=== PATIENT | female | born 1995 | race Caucasian/White ===

== ENCOUNTER → 2019-06-25 13:08 | Outpatient (BNVA) | payer MEDICAID, SELFPAY | PROVIDERS: Family Provider Dermatology; PCP Family Medicine; Visit Provider Counselor Professional | DX: F33.1 Major depressive disorder, recurrent, moderate (principal) | CPT/HCPCS: 90834; 90832 ==

== ENCOUNTER → 2019-07-09 14:23 | Outpatient (BNVA) | payer MEDICAID, SELFPAY | PROVIDERS: Family Provider Dermatology; PCP Family Medicine; Visit Provider Counselor Professional | DX: F33.1 Major depressive disorder, recurrent, moderate (principal) | CPT/HCPCS: 90832 ==

== ENCOUNTER → 2019-07-10 07:51 | Outpatient (BNVA) | payer MEDICAID, SELFPAY | PROVIDERS: Family Provider Dermatology; PCP Family Medicine; Visit Provider Psychiatry & Neurology Psychiatry | DX: F32.89 Other specified depressive episodes (principal); F43.12 Post-traumatic stress disorder, chronic; F40.01 Agoraphobia with panic disorder | CPT/HCPCS: 99205 ==

== ENCOUNTER → 2019-07-23 14:25 | Outpatient (BNVA) | payer MEDICAID, SELFPAY | PROVIDERS: Family Provider Dermatology; PCP Family Medicine; Visit Provider Counselor Professional | DX: F33.1 Major depressive disorder, recurrent, moderate (principal) | CPT/HCPCS: 90832 ==

== ENCOUNTER → 2019-11-17 14:06 | Outpatient (BNVA) | payer MEDICAID, SELFPAY | PROVIDERS: PCP Family Medicine; Visit Provider Counselor Professional | DX: F33.1 Major depressive disorder, recurrent, moderate (principal) | CPT/HCPCS: 90832 ==

== ENCOUNTER → 2019-12-15 14:14 | Outpatient (BNVA) | payer MEDICAID, SELFPAY | PROVIDERS: PCP Family Medicine; Visit Provider Counselor Professional | DX: F33.1 Major depressive disorder, recurrent, moderate (principal) | CPT/HCPCS: 90832 ==

== ENCOUNTER → 2020-01-13 13:04 | Outpatient (BNVA) | payer MEDICAID, SELFPAY | PROVIDERS: PCP Family Medicine; Visit Provider Counselor Professional | DX: F33.9 Major depressive disorder, recurrent, unspecified (principal) | CPT/HCPCS: 90832 ==

== ENCOUNTER → 2020-02-17 13:06 | Outpatient (BNVA) | payer MEDICAID, SELFPAY | PROVIDERS: PCP Family Medicine; Visit Provider Counselor Professional | DX: F33.9 Major depressive disorder, recurrent, unspecified (principal) | CPT/HCPCS: 90832 ==

== ENCOUNTER 2020-03-13 18:57 | Emergency (ER) | payer MEDICAID, SELFPAY ==
[2020-03-13 19:33] VITALS: BP 171/96; PULSE 86; RESP 18; TEMP 36.6; O2SAT 98; BMI 50.6
--- NOTE | 2020-03-13 19:39 | XRR_ITS ---
PROCEDURE INFORMATION: Exam: XR Abdomen, 1 View Exam date and time: 03/13/2020 11:46 PM Age: 24 years old Clinical indication: Constipation TECHNIQUE: Imaging protocol: XR of the abdomen. Views: Frontal supine view of the abdomen. 1 View. COMPARISON: CT abdomen pelvis w con* [id number] 09/30/2017 4:55 PM FINDINGS: Gastrointestinal tract: Normal. No bowel dilation. Bones/joints: Unremarkable. XR/XR KUB portable [id number] IMPRESSION: No acute findings.
--- NOTE | 2020-03-13 23:40 | XRR_ITS ---
PROCEDURE INFORMATION: Exam: XR Chest, 1 View Exam date and time: 03/13/2020 11:46 PM Age: 24 years old Clinical indication: Cough TECHNIQUE: Imaging protocol: XR of the chest Views: 1 view. COMPARISON: CR Chest 1 [place] [id number] 03/01/2017 10:11 PM FINDINGS: Lungs: Unremarkable. No consolidation. Pleural space: Unremarkable. No pleural effusion. No pneumothorax. Heart/Mediastinum: Unremarkable. No cardiomegaly. Bones/joints: Unremarkable. XR/XR chest 1V portable [id number] IMPRESSION: No acute findings. Stable appearance of the chest compared with 03/01/2017.
--- NOTE | 2020-03-13 23:41 | W.ED.ABDPA2 ---
HPI - Abdominal Pain General: Chief Complaint: Abdominal Pain Stated Complaint: SOB, tested positive last sunday, Time Seen by Provider: 03/13/20 23:37 History of Present Illness: HPI narrative: Covid positive patient on the . States that she has had abdominal pain today. Said she had had a bowel movement for 2 days and she said she had a bowel movement this morning. Says she also has a cough has not been using her inhaler. Said her stomach is cramping at times. Feels like she needs to have bowel movement. MD elicited complaint: abdominal pain Pertinent past history: constipation Onset (ago): hour(s) Pain Consistency: intermittent Associated Symptoms: Reports no associated symptoms; Denies chills, fever(s), nausea and vomiting Review of Systems Const: Denies: fever(s), chills or body aches Eyes: Denies: change in vision or blurry vision ENMT: Denies: throat pain or nasal congestion Card: Denies: chest pain or dyspnea on exertion Resp: Reports: non-productive cough; Denies: dyspnea or productive cough GI: Reports: other (Cramping); Denies: abdominal pain, nausea or vomiting Musc: Denies: extremity pain Skin/Breast: Denies: rash Neuro: Denies: headache(s) Psych: Denies: anxiety or depression Herbie/Lymph: Denies: easy bruising PFSH ED PFSH: Medical History (Updated 12/25/19 @ 13:36 by Lobo Portillo MD) Agoraphobia with panic attacks Anxiety Asthma Chronic post-traumatic stress disorder (PTSD) GERD (gastroesophageal reflux disease) History of prediabetes IBS (irritable bowel syndrome) Major depression, recurrent, chronic Morbid obesity with BMI of 50.0-59.9, adult Obstructive sleep apnea of adult Scoliosis Surgical History (Updated 12/25/19 @ 13:27 by Lobo Portillo MD) Hx of wisdom tooth extraction Social History (Updated 12/25/19 @ 08:58 by Urszula Garrido LPN) Smoking and tobacco status: never smoked Alcohol intake: never Marital status: Number of children: 0 Number of grandchildren: 0 Current occupational status: unemployed Sexually active: Yes Current gender identity: Female Physical Exam Const: COMMON NORMALS: no acute distress, average body habitus and patient oriented x3 HENMT: COMMON NORMALS: normocephalic HEAD & SCALP: normal to inspection and normocephalic FACE & SINUS: normal facial exam Eye: COMMON NORMALS: conjunctivae normal GENERAL EYE: appearance normal, both eyes and all related structures CONJUNCTIVA: Yes conjunctivae normal Neck/C-Spine: COMMON NORMALS: no JVD Chest: COMMONS NORMALS: normal inspection of the chest Resp: COMMON NORMALS: normal respiratory effort and clear to auscultation bilaterally AUSCULTATION: clear to auscultation bilaterally Cardio: COMMON NORMALS: no JVD, regular rate and regular rhythm RATE: regular rate RHYTHM: regular rhythm GI: COMMON NORMALS: Normal to inspection, nondistended, normoactive bowel sounds present Extremity: COMMON NORMALS: normal to inspection and full ROM Neuro: COMMON NORMALS: patient oriented x3 Course Vital Signs: Vital signs: Vital Signs Temperature 97.8 F 03/13/20 19:33 Pulse Rate 86 03/13/20 19:33 Respiratory Rate 18 03/13/20 19:33 Blood Pressure 171/96 03/13/20 19:33 Pulse Oximetry 98 03/13/20 19:33 Discharge Plan Discharge Prescriptions: No Action buspirone 10 mg tablet 10 mg PO BID RF: 0 omeprazole magnesium [Acid Talent Development Specialist (omeprazole)] 20 mg capsule,delayed release(DR/EC) 20 mg PO DAILY Qty: 30 RF: 5 dicyclomine 20 mg tablet 20 mg PO BID Qty: 60 RF: 3 sertraline [Zoloft] 100 mg tablet 100 mg PO DAILY Qty: 30 RF: 2 Natavi PNV 13.5 mg iron- 0.5 mg-150 mg capsule 1 cap PO QDAY Qty: 30 RF: 0 haloperidol decanoate [Haldol Decanoate] 50 mg/mL solution 50 mg IM .every 2 weeks Qty: 5 RF: 2 Coding Level of Care Code ED Brand Executive for Drew Puri
[2020-03-13] MEDS: ondansetron 4 MG Tablet PO (23:55)
[2020-03-13] MEDS: HYDROcodone-acetaminophen 10-325 mg Tablet 1 TAB PO (23:55)
[2020-03-13 23:58] VITALS: BP 125/47; PULSE 79; RESP 16; O2SAT 99
[2020-03-14 00:10] LABS: Basophils # 0.1 10^3/uL (0.0-0.1); Basophils % 0.8 %; Eosinophils # 0.1 10^3/uL (0.0-0.8); Hematocrit 39.9 % (37.0-47.0); Hemoglobin 11.2 g/dL (11.5-15.3); Lymphocytes # 2.2 10^3/uL (0.8-4.8); Lymphocytes % 35.2 %; Mean Corpuscular HGB Conc 28.1 g/dL (30.0-36.0); Mean Corpuscular Hemoglobin 20.9 pg (28.0-34.0); Mean Corpuscular Volume 74.6 fL (81-99); Mean Platelet Volume 9.8 fL (7.4-10.4); Monocytes # 0.5 10^3/uL (0.2-0.9); Monocytes % 7.4 %; Neutrophils # 3.44 10^3/uL (1.8-7.7); Nucleated Red Blood Cells % 0 %; Platelet Count 363 10^3/cmm (130-400); Red Blood Count 5.35 10^6/uL (4.1-5.3); Red Cell Distribution Width 17.5 % (12.1-15.1); White Blood Count 6.3 10^3/uL (4.0-10.0)
[2020-03-14 00:22] LABS: HCG Qualitative Urine. Negative (Negative)
[2020-03-14 00:27] LABS: Alanine Aminotransferase 44 U/L (0-33); Albumin Level 3.8 g/dL (3.5-5.2); Alkaline Phosphatase 82 IU/L (35-105); Anion Gap 11.9 (5-19); Aspartate Amino Transferase 28 U/L (0-32); Blood Urea Nitrogen 18 mg/dL (6-20); Calcium 9.1 mg/dL (8.5-10.5); Carbon Dioxide 28 mmol/L (22-29); Chloride 102 mmol/L (98-107); Globulin 3.8 g/dL (1.3-4.6); Glomerular Filtration Rate 88.1 mL/min (90-130); Glucose 115 mg/dL (65-115); Lipase 21 U/L (13-60); Osmolality Calculated 289 mOsm/kg (285-295); Potassium 3.9 mmol/L (3.5-5.1); Sodium 138 mmol/L (136-145); Total Bilirubin 0.2 mg/dL (0.15-1.2); Total Protein 7.6 g/dL (6.6-8.7)
[2020-03-14] MEDS: bisacodyl 5 mg Tablet 10 MG PO (01:25)
[2020-03-14 01:28] VITALS: BP 104/80; PULSE 92; RESP 17; TEMP 36.6; O2SAT 100
== END 2020-03-14 01:28 | disposition home or self-care (01) ==
PROVIDERS: Emergency Provider Nurse Practitioner Family; PCP Family Medicine
DX: R10.9 Unspecified abdominal pain (principal); R06.02 Shortness of breath
CPT/HCPCS: 12345; 36415; 71045; 74018; 80053; 81025; 83690; 85025; 99281; 99283; Q0162

== ENCOUNTER → 2020-03-23 13:19 | Outpatient (BNVA) | payer MEDICAID, SELFPAY | PROVIDERS: PCP Family Medicine; Visit Provider Counselor Professional | DX: F33.2 Major depressive disorder, recurrent severe without psychotic features (principal) | CPT/HCPCS: 90832 ==

== ENCOUNTER → 2020-03-24 15:48 | Outpatient (BNVA) | payer MEDICAID, SELFPAY | PROVIDERS: PCP Family Medicine; Visit Provider Obstetrics & Gynecology | DX: Z34.00 Encounter for supervision of normal first pregnancy, unspecified trimester (principal) | CPT/HCPCS: 81025 ==

== ENCOUNTER → 2020-03-26 10:05 | Outpatient (BNVA) | payer MEDICAID, SELFPAY | PROVIDERS: PCP Family Medicine; Visit Provider Obstetrics & Gynecology | DX: N92.6 Irregular menstruation, unspecified (principal); N91.2 Amenorrhea, unspecified | CPT/HCPCS: 84146; 84443 ==

== ENCOUNTER → 2020-04-09 10:15 | Outpatient (BNVA) | payer MEDICAID, SELFPAY | PROVIDERS: PCP Family Medicine; Visit Provider Obstetrics & Gynecology | DX: N91.2 Amenorrhea, unspecified (principal); N93.8 Other specified abnormal uterine and vaginal bleeding | CPT/HCPCS: 82670; 83001; 84402 ==

== ENCOUNTER → 2020-04-26 10:27 | Outpatient (BNVA) | payer MEDICAID, SELFPAY | PROVIDERS: PCP Family Medicine; Visit Provider Nurse Practitioner Psychiatric/Mental Health | DX: F33.1 Major depressive disorder, recurrent, moderate (principal) | CPT/HCPCS: 99214 ==

== ENCOUNTER → 2020-05-31 07:53 | Outpatient (BNVA) | payer MEDICAID, SELFPAY | PROVIDERS: PCP Family Medicine; Visit Provider Nurse Practitioner Psychiatric/Mental Health | DX: F33.1 Major depressive disorder, recurrent, moderate (principal); F43.12 Post-traumatic stress disorder, chronic | CPT/HCPCS: 99213 ==

== ENCOUNTER 2020-06-06 01:47 | Emergency (ER) | payer MEDICAID, SELFPAY ==
[2020-06-06 01:47] VITALS: BP 105/70; PULSE 82; RESP 18; TEMP 36.5; O2SAT 100; BMI 50.2
--- NOTE | 2020-06-06 01:58 | ECG_ITS ---
[facility] Test Date: 2020-06-06 Pat Name: Nelia Harp Department: Room: Gender: Female Admissions Gate Attendant: : 1995 Requested By: Yared Alba Order Number: [id number] Bonnie MD: Aydee Howell M.D. Measurements Intervals [place] Rate: 92 P: 26 DC: 151 QRS: 31 QRSD: 91 T: 25 QT: 364 QTc: 452 Interpretive Statements SINUS RHYTHM WITH SINUS ARRHYTHMIA INTERPRETATION BASED ON A DEFAULT AGE OF 40 YEARS No previous ECG available for comparison Electronically Signed On 06-06-2020 20:19:25 CDT by Aydee Howell M.D. [email or web address] [facility] [email or web address]/[email or web address]/[id number] f
--- NOTE | 2020-06-06 01:58 | XRR_ITS ---
PROCEDURE INFORMATION: Exam: XR Chest Exam date and time: 06/06/2020 2:00 AM Age: 24 years old Clinical indication: Chest pain TECHNIQUE: Imaging protocol: XR of the chest Views: 1 view. COMPARISON: CR XR chest 1V portable [id number] 03/13/2020 11:37 PM FINDINGS: Lungs: No consolidation. Pleural spaces: Unremarkable. No pleural effusion. No pneumothorax. Heart/Mediastinum: No cardiomegaly. Bones/joints: No acute fracture. XR/XR chest 1V portable [id number] IMPRESSION: No acute findings.
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
[2020-06-06 02:17] LABS: Basophils # 0.1 10^3/uL (0.0-0.1); Basophils % 0.8 %; Eosinophils # 0.2 10^3/uL (0.0-0.8); Hematocrit 35.3 % (37.0-47.0); Hemoglobin 9.7 g/dL (11.5-15.3); Lymphocytes # 2.7 10^3/uL (0.8-4.8); Lymphocytes % 30.5 %; Mean Corpuscular HGB Conc 27.5 g/dL (30.0-36.0); Mean Corpuscular Hemoglobin 20.5 pg (28.0-34.0); Mean Corpuscular Volume 74.6 fL (81-99); Mean Platelet Volume 9.5 fL (7.4-10.4); Monocytes # 0.6 10^3/uL (0.2-0.9); Monocytes % 6.1 %; Neutrophils # 5.39 10^3/uL (1.8-7.7); Neutrophils % 60.2 %; Nucleated Red Blood Cells % 0 %; Platelet Count 371 10^3/cmm (130-400); Red Blood Count 4.73 10^6/uL (4.1-5.3); Red Cell Distribution Width 19.4 % (12.1-15.1)
[2020-06-06 02:34] LABS: HCG, Serum Qual Negative (Negative)
[2020-06-06] MEDS: LORazepam 0.5 mg Tablet PO (02:35)
[2020-06-06 02:45] LABS: Troponin(5th) Baseline 6 ng/L (0-10)
[2020-06-06 03:12] LABS: Alanine Aminotransferase 24 U/L (0-33); Albumin Level 3.8 g/dL (3.5-5.2); Alkaline Phosphatase 77 IU/L (35-105); Anion Gap 14.6 (5-19); Aspartate Amino Transferase 14 U/L (0-32); Blood Urea Nitrogen 10 mg/dL (6-20); Calcium 9.3 mg/dL (8.5-10.5); Carbon Dioxide 24 mmol/L (22-29); Chloride 104 mmol/L (98-107); Globulin 4.1 g/dL (1.3-4.6); Glomerular Filtration Rate 102.8 mL/min (90-130); Glucose 99 mg/dL (65-115); NT Pro B Type Natriuretic Pept 62 pg/mL (0-125); Osmolality Calculated 287 mOsm/kg (285-295); Potassium 3.6 mmol/L (3.5-5.1); Sodium 139 mmol/L (136-145); Total Bilirubin 0.2 mg/dL (0.15-1.2); Total Protein 7.9 g/dL (6.6-8.7)
[2020-06-06 03:37] VITALS: BP 115/73; PULSE 80; RESP 18; O2SAT 99
== END 2020-06-06 03:37 | disposition home or self-care (01) ==
PROVIDERS: Nurse Practitioner Family; Emergency Provider Emergency Medicine
DX: R07.9 Chest pain, unspecified (principal); E11.9 Type 2 diabetes mellitus without complications; Z87.891 Personal history of nicotine dependence
CPT/HCPCS: 71045; 80053; 83880; 84484; 84703; 85025; 93005; 99284

== ENCOUNTER → 2020-07-12 08:22 | Outpatient (BNVA) | payer MEDICAID, SELFPAY | PROVIDERS: Visit Provider Nurse Practitioner Psychiatric/Mental Health | DX: F33.1 Major depressive disorder, recurrent, moderate (principal); F43.12 Post-traumatic stress disorder, chronic; F41.9 Anxiety disorder, unspecified | CPT/HCPCS: 99214 ==

== ENCOUNTER → 2020-08-23 08:35 | Outpatient (BNVA) | payer MEDICAID, SELFPAY | PROVIDERS: Visit Provider Nurse Practitioner Psychiatric/Mental Health | DX: F33.1 Major depressive disorder, recurrent, moderate (principal); F43.12 Post-traumatic stress disorder, chronic; F41.9 Anxiety disorder, unspecified; Z30.9 Encounter for contraceptive management, unspecified | CPT/HCPCS: 99213 ==

== ENCOUNTER → 2020-10-26 07:56 | Outpatient (BNVA) | payer MEDICAID, SELFPAY | PROVIDERS: Visit Provider Nurse Practitioner Psychiatric/Mental Health | DX: F33.1 Major depressive disorder, recurrent, moderate (principal); F43.12 Post-traumatic stress disorder, chronic; F41.9 Anxiety disorder, unspecified; Z30.9 Encounter for contraceptive management, unspecified | CPT/HCPCS: 99214 ==

== ENCOUNTER → 2020-11-01 13:30 | Outpatient (BNVA) | payer MEDICAID, SELFPAY | PROVIDERS: Visit Provider Obstetrics & Gynecology | DX: Z01.419 Encounter for gynecological examination (general) (routine) without abnormal findings (principal); R10.2 Pelvic and perineal pain; N89.8 Other specified noninflammatory disorders of vagina | CPT/HCPCS: 81000; 81025; 83036; 83525; 84443; 84702; 87481; 87512; 87798; 87799 ==

== ENCOUNTER → 2020-11-24 07:40 | Outpatient (BNVA) | payer MEDICAID, SELFPAY | PROVIDERS: Visit Provider Nurse Practitioner | DX: F43.12 Post-traumatic stress disorder, chronic (principal); F33.9 Major depressive disorder, recurrent, unspecified; F41.9 Anxiety disorder, unspecified | CPT/HCPCS: 99214 ==

== ENCOUNTER → 2022-04-28 10:14 | Outpatient (BNVA) | payer MEDICAID, SELFPAY | PROVIDERS: Visit Provider Obstetrics & Gynecology | DX: N92.6 Irregular menstruation, unspecified (principal) | CPT/HCPCS: 84702 ==

== ENCOUNTER 2022-11-10 16:27 | Inpatient (IN) | payer MEDICAID, SELFPAY ==
[2022-11-10 16:32] VITALS: BP 138/79; PULSE 94; RESP 18; TEMP 36.9; O2SAT 98; BMI 55.9
[2022-11-10 16:35] VITALS: BP 138/79; PULSE 94; RESP 18; O2SAT 98
--- NOTE | 2022-11-10 17:07 | ED.C_ITS ---
HPI - Psych General: Chief Complaint: Psychiatric Symptoms Stated Complaint: psych Time Seen by Provider: 11/10/22 16:29 History of Present Illness: Presents to the ER today with complaints of self-harm and suicidal ideation. Patient states that these just started today. Patient has not been on her medicine for a long time because they got stolen while she was in [place]. Patient states she has not acted on her suicidal ideation but she would use something sharp and stab herself if she could could. Patient does have a history of cutting herself. Patient states her life is overwhelming and she feels her life is in a downward spiral and she is wants to end it all. Review of Systems General: Reports: 10 or more systems reviewed and unremarkable except in HPI and below PFSH ED PFSH: Medical History Agoraphobia with panic attacks Anxiety Asthma Chronic post-traumatic stress disorder (PTSD) GERD (gastroesophageal reflux disease) History of diabetes mellitus States told had gone away. States had been treated with Metformin, but stopped in approximately 2018 History of prediabetes Hyperprolactinemia IBS (irritable bowel syndrome) Major depression, recurrent, chronic Morbid obesity with BMI of 50.0-59.9, adult Obstructive sleep apnea of adult Polycystic ovarian syndrome Scoliosis Surgical History History of placement of ear tubes Hx of wisdom tooth extraction Family History Mother Diabetes Grandmother CAD (coronary artery disease) Paternal Stroke Paternal Family/Other Cancer Paternal side. Multiple types. Social History Smoking and tobacco status: former smoker Quit status (tobacco): has quit using tobacco Year quit tobacco: 10/2018 Former quit date comment: Smoked 1/2 ppd. Started age 20. Alcohol intake: never Substance/Drug Use: never Marital status: Do you think of yourself as: Straight/Heterosexual Female Reproductive History: Date of last menstrual period: 10/31/22 Physical Exam Const: COMMON NORMALS: no acute distress, average body habitus, patient oriented x3, no limitations, healthy appearing, alert and well nourished HENMT: COMMON NORMALS: normocephalic, atraumatic, hearing grossly normal bilaterally, external ears normal, Normal external nose present and moist oral mucous membranes HEAD & SCALP: normocephalic and atraumatic NOSE: Normal external nose present EXTERNAL EAR: Yes external ears normal Neck/C-Spine: COMMON NORMALS: full ROM, no lymphadenopathy, supple, no meningeal signs, no JVD and Thyroid normal THYROID: Thyroid normal Lymph: LYMPHATIC: no lymphadenopathy noted Chest: COMMONS NORMALS: normal inspection of the chest and normal palpation of entire chest wall Resp: COMMON NORMALS: normal respiratory effort, No retractions, No use of accessory muscles and clear to auscultation bilaterally AUSCULTATION: clear to auscultation bilaterally Cardio: COMMON NORMALS: no JVD, regular rate, regular rhythm, S1 normal heart sound present, S2 normal heart sound present, No gallops present (Cardio), No clicks present (Cardio), No murmurs present (Cardio) and No rub (Cardio) RATE: regular rate RHYTHM: regular rhythm HEART SOUNDS: S1 normal heart sound present and S2 normal heart sound present GI: COMMON NORMALS: Normal to inspection, nondistended, normoactive bowel sounds present, Soft to palpation, non-tender, No hepatosplenomegaly present and no masses PALPATION: Yes Soft to palpation and Yes No hepatosplenomegaly present Neuro: COMMON NORMALS: patient oriented x3 SENSORIUM/ORIENTATION: Yes alert MENINGEAL SIGNS: Yes no meningeal signs Course Vital Signs: Vital signs: Vital Signs Temperature 98.4 F 11/10/22 16:32 Pulse Rate 94 11/10/22 16:35 Respiratory Rate 18 11/10/22 16:35 Blood Pressure 138/79 11/10/22 16:35 Pulse Oximetry 98 11/10/22 16:35 Oxygen Delivery Me thod Room Air 11/10/22 16:35 MDM - Psych Medical Decision Making Presented to the ER with suicidal ideation. Patient was worked up in the normal fashion with physical exam and standard blood work. Dr. Huffman was consulted who agreed to admit the patient to the MPU for further evaluation testing. Differential Diagnosis Likely suicidal ideation; Unlikely acute psychosis, chronic schizophrenia, bipolar disorder, depression, drug-induced psychotic disorder or acute anxiety Medical Records I reviewed the patient's medical records. Lab Data I reviewed the patient's lab results. 11/10/22 17:04 11/10/22 17:04 Laboratory Results WBC 6.72 10^3/uL (3.29-11.43) 11/10/22 17:04 RBC 5.24 10^6/uL (3.85-5.65) 11/10/22 17:04 Hgb 13.10 g/dL (11.27-16.99) 11/10/22 17:04 Hct 45.3 % (36-47) 11/10/22 17:04 MCV 86.5 fl (85-98) 11/10/22 17:04 MCH 25.0 pg (27-33) L 11/10/22 17:04 MCHC 28.9 g/dL (30-55) L 11/10/22 17:04 RDW 15.4 % (12.1-15.1) H 11/10/22 17:04 Plt Count 251 10^3/cmm (157-399) 11/10/22 17:04 MPV 10.4 fL (7.4-10.4) 11/10/22 17:04 Neut % (Auto) 68.2 % 11/10/22 17:04 Lymph % (Auto) 24.3 % 11/10/22 17:04 [place] % (Auto) 6.1 % 11/10/22 17:04 Eos % (Auto) 0.7 % 11/10/22 17:04 Baso % (Auto) 0.6 % 11/10/22 17:04 Neut # (Auto) 4.58 10^3/uL (1.8-7.7) 11/10/22 17:04 Lymph # (Auto) 1.6 10^3/uL (0.8-4.8) 11/10/22 17:04 [place] # (Auto) 0.4 10^3/uL (0.2-0.9) 11/10/22 17:04 Eos # (Auto) 0.1 10^3/uL (0.0-0.8) 11/10/22 17:04 Baso # (Auto) 0.0 10^3/uL (0.0-0.1) 11/10/22 17:04 Nucleated RBC % (auto) 0 % 11/10/22 17:04 Nucleated RBCs # 0.0 /100WBC 11/10/22 17:04 Sodium 138 mmol/L (136-145) 11/10/22 17:04 Potassium 3.4 mmol/L (3.5-5.1) L 11/10/22 17:04 Chloride 105 mmol/L (98-107) 11/10/22 17:04 Carbon Dioxide 20 mmol/L (22-29) L 11/10/22 17:04 Anion Gap 16.4 (5-19) 11/10/22 17:04 BUN 9 mg/dL (6-20) 11/10/22 17:04 Creatinine 0.7 mg/dL (0.5-0.9) 11/10/22 17:04 GFR Calculation 100.4 mL/min (90-130) 11/10/22 17:04 Glucose 81 mg/dL (65-115) 11/10/22 17:04 Calculated Osmolality 284 mOsm/kg (285-295) L 11/10/22 17:04 Calcium 9.3 mg/dL (8.5-10.5) 11/10/22 17:04 Total Bilirubin 0.4 mg/dL (0.15-1.2) 11/10/22 17:04 AST 17 U/L (0-32) 11/10/22 17:04 ALT 17 U/L (0-33) 11/10/22 17:04 Alkaline Phosphatase 73 U/L (35-105) 11/10/22 17:04 Total Protein 8.1 g/dL (6.6-8.7) 11/10/22 17:04 Albumin 4.1 g/dL (3.5-5.2) 11/10/22 17:04 Globulin 4.0 g/dL (1.3-4.6) 11/10/22 17:04 HCG, Qual Negative (Negative) 11/10/22 17:45 Urine Color Yellow (Yellow) 11/10/22 17:45 Urine Appearance Hazy (CLEAR) A 11/10/22 17:45 Urine pH 5 (5-7) 11/10/22 17:45 Ur Specific [place] 1.025 (1.005-1.030) 11/10/22 17:45 Urine Protein Trace (Negative) 11/10/22 17:45 Urine Glucose (UA) Norm (Normal) 11/10/22 17:45 Urine Ketones 1+ (Negative) H 11/10/22 17:45 Urine Blood Neg (Negative) 11/10/22 17:45 Urine Nitrate Negative (Negative) 11/10/22 17:45 Urine Bilirubin 1+ (Negative) H 11/10/22 17:45 Urine Urobilinogen 1 mg/dL (Negative) H 11/10/22 17:45 Ur Leukocyte Esterase 2+ (Negative) H 11/10/22 17:45 Urine RBC 0-4 /hpf (0-2) H 11/10/22 17:45 Urine WBC 10-15 /hpf (0-5) H 11/10/22 17:45 Ur Squamous Epith Cells 5-10 /hpf (0-5) H 11/10/22 17:45 Amorphous Sediment 2+ /hpf 11/10/22 17:45 Urine Bacteria 3+ /hpf (NONE) H 11/10/22 17:45 Urine Mucus 3+ /hpf 11/10/22 17:45 Salicylates < 0.3 mg/dL (3-10) L 11/10/22 17:04 Urine Opiates Screen Negative ng/mL (Negative) 11/10/22 17:45 Acetaminophen < 5.0 ug/mL (10-30) L 11/10/22 17:04 Ur Barbiturates Screen Negative ng/mL (Negative) 11/10/22 17:45 Ur Phencyclidine Scrn Negative ng/mL (Negative) 11/10/22 17:45 Ur Amphetamines Screen Negative ng/mL (Negative) 11/10/22 17:45 U Benzodiazepines Scrn Negative ng/mL (Negative) 11/10/22 17:45 Urine Cocaine Screen Negative ng/mL (Negative) 11/10/22 17:45 U Marijuana (THC) Screen Negative ng/mL (Negative) 11/10/22 17:45 Ethyl Alcohol < 10 mg/dL (0-10) 11/10/22 17:04 Discharge Plan Discharge Patient Disposition: Admitted As Inpatient Clinical Impression: Suicidal ideation Condition: Stable Coding Level of Care Code ED House Carpenter Helper for Drew Puri
[2022-11-10 17:11] LABS: Basophils % 0.6 %; Eosinophils # 0.1 10^3/uL (0.0-0.8); Eosinophils % 0.7 %; Hematocrit 45.3 % (36-47); Lymphocytes # 1.6 10^3/uL (0.8-4.8); Lymphocytes % 24.3 %; Mean Corpuscular HGB Conc 28.9 g/dL (30-55); Mean Corpuscular Volume 86.5 fl (85-98); Mean Platelet Volume 10.4 fL (7.4-10.4); Monocytes # 0.4 10^3/uL (0.2-0.9); Monocytes % 6.1 %; Neutrophils # 4.58 10^3/uL (1.8-7.7); Neutrophils % 68.2 %; Nucleated Red Blood Cells % 0 %; Platelet Count 251 10^3/cmm (157-399); Red Blood Count 5.24 10^6/uL (3.85-5.65); Red Cell Distribution Width 15.4 % (12.1-15.1); White Blood Count 6.72 10^3/uL (3.29-11.43)
[2022-11-10 17:32] LABS: Acetaminophen < 5.0 ug/mL (10-30); Alanine Aminotransferase 17 U/L (0-33); Albumin Level 4.1 g/dL (3.5-5.2); Alcohol Level < 10 mg/dL (0-10); Alkaline Phosphatase 73 U/L (35-105); Anion Gap 16.4 (5-19); Aspartate Amino Transferase 17 U/L (0-32); Blood Urea Nitrogen 9 mg/dL (6-20); Calcium 9.3 mg/dL (8.5-10.5); Carbon Dioxide 20 mmol/L (22-29); Chloride 105 mmol/L (98-107); Glomerular Filtration Rate 100.4 mL/min (90-130); Glucose 81 mg/dL (65-115); Osmolality Calculated 284 mOsm/kg (285-295); Potassium 3.4 mmol/L (3.5-5.1); Salicylate < 0.3 mg/dL (3-10); Sodium 138 mmol/L (136-145); Total Bilirubin 0.4 mg/dL (0.15-1.2); Total Protein 8.1 g/dL (6.6-8.7)
[2022-11-10 18:05] LABS: Blood Urine Neg (Negative); Glucose Urine UA Norm (Normal); HCG Qualitative Urine. Negative (Negative); Ketones Urine 1+ (Negative); Protein Urine Trace (Negative); Specific Gravity, Urine 1.025 (1.005-1.030); Urine Appearance Hazy (CLEAR); Urine Color Yellow (Yellow); pH Urine 5 (5-7)
[2022-11-10 18:06] LABS: Add Urine Microscopic? YES; Amphetamines Screen Urine Negative (Negative); Barbiturates Screen Urine Negative (Negative); Benzodiazepines Screen Urine Negative (Negative); Bilirubin Urine 1+ (Negative); Cocaine Screen Urine Negative (Negative); Leukocyte Esterase Urine 2+ (Negative); Nitrate Urine Negative (Negative); Opiate Screen Urine Negative (Negative); PCP Screen Urine Negative (Negative); THC Screen Urine Negative (Negative); Urobilinogen Urine 1 mg/dL (Negative)
[2022-11-10 18:07] LABS: Add Urine Culture? Yes; Amorphous Sediment Urine 2+ /hpf; Bacteria Urine 3+ /hpf; Mucus Urine 3+ /hpf; RBC Urine 0-4 /hpf (0-2)
[2022-11-10 19:50] VITALS: BP 102/60; PULSE 85; RESP 16; O2SAT 100
[2022-11-10 20:53] VITALS: BP 124/82; PULSE 98; RESP 18; TEMP 36.9; O2SAT 98
--- NOTE | 2022-11-10 22:33 | PC.NURSE ---
Pt arrived to [facility] @ approximately 2040 w/RN and security at side. Pt is calm and cooperative upon assessment.
[2022-11-11 06:00] VITALS: BP 114/74; PULSE 93; RESP 20; O2SAT 99
[2022-11-11 13:30] VITALS: PULSE 65; RESP 16; O2SAT 99
[2022-11-11] MEDS: albuterol 2.5 mg/3 mL Neb INHALATION (13:32)
[2022-11-11 13:46] VITALS: BP 101/63; PULSE 88; RESP 17; TEMP 37; O2SAT 98
--- NOTE | 2022-11-11 15:22 | W.PM.NPUH&PS ---
Providers/Chief Complaint Admitting Physician: Hawk Huffman MD Chief Complaint: psych HPI NPU History of Present Illness Nelia Harp is a 27 year old female who presented to the emergency department with the following report: Chief Complaint: Psychiatric Symptoms Stated Complaint: psych Time Seen by Provider: 11/10/22 16:29 History of Present Illness: Presents to the ER today with complaints of self-harm and suicidal ideation. Patient states that these just started today. Patient has not been on her medicine for a long time because they got stolen while she was in [place]. Patient states she has not acted on her suicidal ideation but she would use something sharp and stab herself if she could could. Patient does have a history of cutting herself. Patient states her life is overwhelming and she feels her life is in a downward spiral and she is wants to end it all. She was admitted to the neuropsychiatric unit for definitive treatment of those issues. She presents today reporting that she has been hospitalized twice at this facility in the past. An excerpt of her April 2017 inpatient stay is included below for context. Patient reports a long history of mental health treatment and has been at [facility] for some time. Though she was last seen in 2020. She reports that she was recently kicked out of a homeless snf and that has caused most of her difficulty. She reported she has been medications only were stolen but she has been off of them for some time. She is a poor story of an did report that she had struggled with family dynamics which led to her being homeless. She reports a history of self-injurious behavior. She reports symptoms consistent with mixed disorder including feelings of helplessness, hopelessness and worthlessness. She reports that after things went bad she came back to [place]. Thanks continued to be bad. And she started having thoughts to end it all. We discussed her trying to determine what she was on last that was helpful. We discussed the possibility of considering Wellbutrin XL which she said she will think about. Discussed the risks, benefits and alternatives of hurting some antidepressant and she understood agreed to proceed as is documented on this note. Per her 04/21/2017 [facility] inpatient psychiatric evaluation: History of Present Illness Date of Service: Apr 21, 2017 Chief Complaint: My ex-BF dumped me over text. HPI: HPI: The patient is a 21-year-old female admitted on a 96 hour hold for suicidal s/p OD on a handful of ibuprofen. Acet/ salic were unremarkable upon admission and VSS. The patient reports that her BF dumped her over the phone, texted her a picture of himself having sex with someone else, and suggested she kill herself, so she subsequently took the OD. UDS/ BAL were negative upon admission. She reports that she then called a friend who called EMS. Pt is a limited historian due to hx some borderline intellectual disability and poor insight. She reports that prior to the break-up her mood had been fine' but does report some chronic anhedonia, fatigue, recent SI, and generalized anxiety which causes muscle tension and feeling overwhelmed with difficulty managing that. Psychiatric review of systems: As above. Reports sleeps ok, appetite ok, denies worthlessness/ hopelessness. Reports hx SI after step-father passed 2 years ago. Denies manic episode/ hallucinations/ paranoia/ HI/ hx trauma. Pt does have hx facial tics for many years but denies vocal tics. Past psychiatric history: Denies prior SA/ psych admission. Has been treated by PCP for depression in the past but achieved remission ( Flexeril ?/ possibly means Lexapro) and has also been taking an unknown anxiety med PRN possibly hydroxyzine which is somewhat helpful. Past medical history: GERD, glasses, no hx head injuries/ seizures/ surgeries Family history: Uncle/ GM- depression Social history: single, no children, unemployed fired recently for lack of transportation at [facility], graduated HS with some LD/ ADD/ math problems. Legal- denies. Alcohol denies. Denies drugs. Smokes 1-2 cigarettes daily. Meds NPU Home Medications Medication Instructions Recorded Confirmed Last Taken Type albuterol sulfate 90 mcg/actuation 2 puff inhalation Q6H PRN 04/26/20 11/10/22 Unknown History aerosol inhaler (ProAir HFA) Shortness Of Breath Or Wheezing buspirone 15 mg tablet 15 mg PO BID #60 tabs 10/26/20 11/10/22 Unknown Rx desvenlafaxine succinate 100 mg 100 mg PO DAILY 11/10/22 11/10/22 Unknown History tablet,extended release 24 hr (Pristiq) omeprazole 20 mg capsule,delayed 20 mg PO BID 11/10/22 11/10/22 Unknown History release topiramate 50 mg tablet (Topamax) 50 mg PO DAILY 11/10/22 11/10/22 Unknown History Allergies Allergy/AdvReac Type Severity Reaction Status Date / Time aspirin Allergy feels like Verified 11/10/22 16:31 stomach is going to explode grape flavor Allergy Rash Verified 11/10/22 16:31 Penicillins Allergy gets hives Verified 11/10/22 16:31 PFSH NPU PFSH: Medical History Agoraphobia with panic attacks Anxiety Asthma Chronic post-traumatic stress disorder (PTSD) GERD (gastroesophageal reflux disease) History of diabetes mellitus States told had gone away. States had been treated with Metformin, but stopped in approximately 2019 History of prediabetes Hyperprolactinemia IBS (irritable bowel syndrome) Major depression, recurrent, chronic Morbid obesity with BMI of 50.0-59.9, adult Obstructive sleep apnea of adult Polycystic ovarian syndrome Scoliosis Surgical History History of placement of ear tubes Hx of wisdom tooth extraction Family History Mother Diabetes Grandmother CAD (coronary artery disease) Paternal Stroke Paternal Family/Other Cancer Paternal side. Multiple types. Social History Smoking and tobacco status: former smoker Quit status (tobacco): has quit using tobacco Year quit tobacco: 10/2018 Former quit date comment: Smoked 1/2 ppd. Started age 20. Alcohol intake: never Substance/Drug Use: never Marital status: Do you think of yourself as: Straight/Heterosexual Mental Status Exam MSE Comments: This is a morbidly obese, white female, in hospital scrubs, with limited grooming and eye contact. No abnormal movements, except for psychomotor retardation. Cooperative with exam in mild distress. Speech was decreased rate and volume. Mood described as depressed; affect congruent. Thought process, organized. Thought content: patient endorsed some suicidal thoughts but denied homicidal ideation, there were no delusions reported or noted, patient denied any auditory or visual hallucinations. Attention and concentration appeared intact, and memory appeared mostly reliable, but none were formally tested. Alert and oriented times three. Insight and judgment are limited. Impulse control is impaired. Vitals/I&O/Wt Last Vital Signs Temp 98.6 F 11/11/22 13:46 Pulse 88 11/11/22 13:46 Resp 17 11/11/22 13:46 BP 101/63 11/11/22 13:46 Pulse Ox 98 11/11/22 13:46 O2 Del Method Room Air 11/11/22 13:30 Weight last 48 hrs Weight 161.932 kg Data NPU 11/10/22 17:04 11/10/22 17:04 A&P Assessment and plan (1) Suicidal ideation: (2) Hyperinsulinism: (3) Anxiety: (4) Major depressive disorder, recurrent, moderate: (5) Chronic post-traumatic stress disorder (PTSD): (6) Morbid obesity with BMI of 50.0-59.9, adult: (7) Obstructive sleep apnea of adult: Plan This is a 27-year-old, white female, with a long history of mental health challenges and different medications, who presents reporting significant psycho-social challenges, including homelessness and having her medications stolen, open to the possibility of restarting her medications and getting back into treatment. 1. Continue current medication. 2. Encourage individual, group, and milieu therapy. 3. Continue q-15-minute checks for safety. Involuntary Hold Information 96 Hour Hold: 96 Hour Involuntary Admission: No Attestations NPU Medical Necessity Statement*: Inpatient hospitalization is medically necessary and the clinically appropriate intervention, at this time. We will monitor medications and make changes as indicated. Patient will be in the hospital for over two midnights. Likely length of stay is three to five days. Coding Level of Care Code Acute Code for Chg Fwd Diagnoses Suicidal ideation R45.851 Hyperinsulinism E16.1 Anxiety F41.9 Major depressive disorder, recurrent, moderate F33.1 Chronic post-traumatic stress disorder (PTSD) F43.12 Morbid obesity with BMI of 50.0-59.9, adult E66.01; Z68.43 Obstructive sleep apnea of adult G47.33
[2022-11-11 20:47] VITALS: BP 125/83; PULSE 82; RESP 18; TEMP 36.6; O2SAT 100
[2022-11-11] MEDS: calcium carbonate 500 mg Chew Tablet 1000 MG PO (20:48)
[2022-11-11] MEDS: trazodone 50 mg Tablet PO (20:51)
[2022-11-12 06:00] VITALS: RESP 16
--- NOTE | 2022-11-12 08:43 | P.NPUPN_ITS ---
Subjective NPU Subjective: Patient presented today reporting that she would be open to restarting her buspar for anxiety. She was unsure what she wanted to do about the depression, but we discussed the risks, benefits and alternatives to starting Wellbutrin XL and she understood and agreed to proceed as is documented in this note. We discussed Dr. Eason coming tomorrow and being the person that will decide when discharge is appropriate. Mental Status Exam MSE Comments: This is a morbidly obese, white female, in hospital scrubs, with limited grooming and eye contact. No abnormal movements, except for psychomotor ret ardation. Cooperative with exam in mild distress. Speech was decreased rate and volume. Mood described as depressed; affect congruent. Thought process, organized. Thought content: patient endorsed some suicidal thoughts but denied homicidal ideation, there were no delusions reported or noted, patient denied any auditory or visual hallucinations. Attention and concentration appeared intact, and memory appeared mostly reliable, but none were formally tested. Alert and oriented times three. Insight and judgment are limited. Impulse control is impaired. Vitals/I&O/Wt Last Vital Signs Temp 97.9 F 11/12/22 22:00 Pulse 59 L 11/12/22 22:00 Resp 16 11/12/22 22:00 BP 134/94 11/12/22 22:00 Pulse Ox 100 11/12/22 22:00 O2 Del Method Room Air 11/12/22 14:00 11/12/22 11/12/22 11/13/22 14:59 22:59 06:59 Intake Total 720 / 720 Balance 720 / 720 Weight last 48 hrs Weight 164.2 kg Data NPU 11/10/22 17:04 11/10/22 17:04 Micro: Microbiology 11/10/22 17:45 Urine Culture - Final Urine,Clean Catch Microbiology 11/10/22 17:45 Urine,Clean Catch Urine Culture - Final A&P Assessment and plan (1) Suicidal ideation: (2) Hyperinsulinism: (3) Anxiety: (4) Major depressive disorder, recurrent, moderate: (5) Chronic post-traumatic stress disorder (PTSD): (6) Morbid obesity with BMI of 50.0-59.9, adult: (7) Obstructive sleep apnea of adult: Plan This is a 27-year-old, white female, with a long history of mental health challenges and different medications, who presents reporting significant psycho- social challenges, including homelessness and having her medications stolen, open to the possibility of restarting her medications and getting back into treatment. 1. Continue current medication. buspar 10 mg po bid. and consider Wellbutrin XL 150 mg qam 2. Encourage individual, group, and milieu therapy. 3. Continue q-15-minute checks for safety. Involuntary Hold Information 96 Hour Hold: 96 Hour Involuntary Admission: No Attestations NPU Medical Necessity Statement*: Inpatient hospitalization is medically necessary and the clinically appropriate intervention, at this time. We will monitor medications and make changes as indicated. Likely length of stay is 2-4 days. Coding Level of Care Code Acute Code for Chg Fwd Diagnoses Suicidal ideation R45.851 Hyperinsulinism E16.1 Anxiety F41.9 Major depressive disorder, recurrent, moderate F33.1 Chronic post-traumatic stress disorder (PTSD) F43.12 Morbid obesity with BMI of 50.0-59.9, adult E66.01; Z68.43 Obstructive sleep apnea of adult G47.33
[2022-11-12 14:00] VITALS: BP 102/70; PULSE 94; RESP 16; O2SAT 100
[2022-11-12] MEDS: calcium carbonate 500 mg Chew Tablet 1000 MG PO (19:02)
[2022-11-12] MEDS: trazodone 50 mg Tablet PO (20:25)
[2022-11-12 22:00] VITALS: BP 134/94; PULSE 59; RESP 16; TEMP 36.6; O2SAT 100
[2022-11-13 06:00] VITALS: BP 113/72; PULSE 74; RESP 16; O2SAT 94
[2022-11-13] MEDS: BuSPIRONE 10 mg Tablet PO (09:10)
[2022-11-13] MEDS: buPROPion XL (24 HR) 150 mg Tablet PO (09:10)
--- NOTE | 2022-11-13 15:44 | P.NPUDS_ITS ---
Diagnoses at Discharge Discharge Diagnosis (1) Major depressive disorder, recurrent, moderate: Status: Chronic (2) Suicidal ideation: Status: Acute (3) Hyperinsulinism: Status: Acute (4) Anxiety: Status: Chronic (5) Chronic post-traumatic stress disorder (PTSD): Status: Chronic (6) Morbid obesity with BMI of 50.0-59.9, adult: Status: Acute (7) Obstructive sleep apnea of adult: Status: Acute Reason for Visit Reason for Visit: psych Brief History: History of Present Illness Nelia Harp is a 27 year old female who presented to the emergency department with the following report: Chief Complaint: Psychiatric Symptoms Stated Complaint: psych Time Seen by Provider: 11/10/22 16:29 History of Present Illness: ? Presents to the ER today with complaints of self-harm and suicidal ideation.? Patient states that these just started today.? Patient has not been on her medicine for a long time because they got stolen while she was in [place].? Patient states she has not acted on her suicidal ideation but she would use something sharp and stab herself if she could could.? Patient does have a history of cutting herself.? Patient states her life is overwhelming and she feels her life is in a downward spiral and she is wants to end it all. She was admitted to the neuropsychiatric unit for definitive treatment of those issues.? She presents today reporting that she has been hospitalized twice at this facility in the past.? An excerpt of her April 2017 inpatient stay is included below for context.? Patient reports a long history of mental health treatment and has been at [facility] for some time.? Though she was last seen in 2020.? She reports that she was recently kicked out of a homeless nursing home and that has caused most of her difficulty.? She reported she has been medications only were stolen but she has been off of them for some time.? She is a poor story of an did report that she had struggled with family dynamics which led to her being homeless.? She reports a history of self-injurious behavior.? She reports symptoms consistent with mixed disorder including feelings of helplessness, hopelessness and worthlessness.? She reports that after things went bad she came back to [place].? Thanks continued to be bad.? And she started having thoughts to end it all. ? We discussed her trying to determine what she was on last that was helpful.? We discussed the possibility of considering Wellbutrin XL which she said she will think about.? Discussed the risks, benefits and alternatives of hurting some antidepressant and she understood agreed to proceed as is documented on this note. Per her 04/21/2017 [facility] inpatient psychiatric evaluation: History of Present Illness Date of Service: Apr 21, 2017 Chief Complaint: My ex-BF dumped me over text. HPI: HPI: The patient is a 21-year-old female admitted on a 96 hour hold for suicidal s/p OD on a handful of ibuprofen.? Acet/ salic were unremarkable upon admission and VSS.? The patient reports that her BF dumped her over the phone, texted her a picture of himself having sex with someone else, and suggested she kill herself, so she subsequently took the OD. ? UDS/ BAL were negative upon admission.? She reports that she then called a friend who called EMS.? Pt is a limited historian due to hx some borderline intellectual disability and poor insight.? She reports that prior to the break-up her mood had been fine' but does report some chronic anhedonia, fatigue, recent SI, and generalized anxiety which causes muscle tension and feeling overwhelmed with difficulty managing that. Psychiatric review of systems: As above.? Reports sleeps ok, appetite ok, denies worthlessness/ hopelessness.? Reports hx SI after step-father passed 2 years ago. Denies manic episode/ hallucinations/ paranoia/ HI/ hx trauma.? Pt does have hx facial tics for many years but denies vocal tics. Past psychiatric history: Denies prior SA/ psych admission.? Has been treated by PCP for depression in the past but achieved remission ( Flexeril ?/ possibly means Lexapro) and has also been taking an unknown anxiety med PRN possibly hydroxyzine which is somewhat helpful. Past medical history:? GERD, glasses, no hx head injuries/ seizures/ surgeries Family history:? Uncle/ GM- depression Social history: single, no children, unemployed fired recently for lack of transportation at [employer], graduated HS with some LD/ ADD/ math problems. Legal- denies.? Alcohol denies.? Denies drugs.? Smokes 1-2 cigarettes daily. Medical History? Agoraphobia with panic attacks Anxiety Asthma Chronic post-traumatic stress disorder (PTSD) GERD (gastroesophageal reflux disease) History of diabetes mellitus States told had gone away.? States had been treated with Metformin, but stopped in approximately 2019History of prediabetes Hyperprolactinemia IBS (irritable bowel syndrome) Major depression, recurrent, chronic Morbid obesity with BMI of 50.0-59.9, adult Obstructive sleep apnea of adult Polycystic ovarian syndrome Scoliosis Medications albuterol sulfate 90 mcg/actuation 2 puff inhalation Q6H PRN 04/26/20 11/10/22 Unknown History aerosol inhaler (ProAir HFA) Shortness Of Breath Or Wheezing ? buspirone 15 mg tablet 15 mg PO BID #60 tabs 10/26/20 11/10/22 Unknown Rx desvenlafaxine succinate 100 mg 100 mg PO DAILY 11/10/22 11/10/22 Unknown History tablet,extended release 24 hr ? (Pristiq) ? omeprazole 20 mg capsule,delayed 20 mg PO BID 11/10/22 11/10/22 Unknown History release ? topiramate 50 mg tablet (Topamax) 50 mg PO DAILY 11/10/22 11/10/22 Unknown History ??Surgical History? History of placement of ear tubes Hx of wisdom tooth extraction ??Family History? Mother DiabetesGrandmother CAD (coronary artery disease)?? ? PaternalStroke?? ? PaternalFamily/Other Cancer?? ? Paternal side. Multiple types. ? Social History? Smoking and tobacco status:? former smoker Quit status (tobacco):? has quit using tobacco Year quit tobacco: 10/2018 Former quit date comment: Smoked 1/2 ppd.? Started age 20. Alcohol intake:? never Substance/Drug Use:? never Marital status:? Do you think of yourself as:? Straight/Heterosex Hospital Course Hospital Course During the hospitalization, the patient had routine laboratory studies which were within normal limits except for a few outliers.? Additionally, there was a general medical evaluation which was also within normal limits and revealed no new acute processes.? At the time of discharge, lethality was denied and psychosis was resolving.? Mood and anxiety were well managed.? The patient endorsed a plan to avoid all drugs of abuse and follow up with the aftercare recommendations of the treatment team.? The patient was evaluated and deemed to be absent credible lethality and had achieved the maximum benefit from an inpatient hospitalization, and so was discharged.? The patient's pristiq was discontinued and wellbutrin xl was started to target depression while restarting buspar as well to target anxiety. Involuntary Hold Information 96 Hour Hold: 96 Hour Involuntary Admission: No Mental Status Exam MSE Comments: This is a morbidly obese, white female, in hospital scrubs, with fair grooming and poor eye contact. There was no evidence of any abnormal involuntary motor movements tics or tremors appreciated. She was cooperative with exam in no acute distress. Speech was normal in rate and volume. Mood described as better. Her affect was brighter on discharge. Thought process was linear and organized. Thought content: She denied any homicidal or suicidal ideation. There were no delusions reported or noted, patient denied any auditory or visual hallucinations. Attention and concentration appeared intact, and memory appeared mostly reliable, but none were formally tested. She was alert and oriented times three. Insight was limited. Her judgment appeared adequate. Impulse control appeared fair. Discharge Data Studies Completed and Pending: Laboratory Results WBC 6.72 10^3/uL (3.2 9-11.43) 11/10/22 17:04 RBC 5.24 10^6/uL (3.8 5-5.65) 11/10/22 17:04 Hgb 13.10 g/dL (11.27 -16.99) 11/10/22 17:04 Hct 45.3 % (36-47) 11/10/22 17:04 MCV 86.5 fl (85-98) 11/10/22 17:04 MCH 25.0 pg (27-33) L 11/10/22 17:04 MCHC 28.9 g/dL (30-55) L 11/10/22 17:04 RDW 15.4 % (12.1-15.1 ) H 11/10/22 17:04 Plt Count 251 10^3/cmm (157 -399) 11/10/22 17:04 MPV 10.4 fL (7.4-10.4 ) 11/10/22 17:04 Neut % (Auto) 68.2 % 11/10/22 17:04 Lymph % (Auto) 24.3 % 11/10/22 17:04 Motley % (Auto) 6.1 % 11/10/22 17:04 Eos % (Auto) 0.7 % 11/10/22 17:04 Baso % (Auto) 0.6 % 11/10/22 17:04 Neut # (Auto) 4.58 10^3/uL (1.8 -7.7) 11/10/22 17:04 Lymph # (Auto) 1.6 10^3/uL (0.8- 4.8) 11/10/22 17:04 Motley # (Auto) 0.4 10^3/uL (0.2- 0.9) 11/10/22 17:04 Eos # (Auto) 0.1 10^3/uL (0.0- 0.8) 11/10/22 17:04 Baso # (Auto) 0.0 10^3/uL (0.0- 0.1) 11/10/22 17:04 Nucleated RBC % (a uto) 0 % 11/10/22 17:04 Nucleated RBCs # 0.0 /100WBC 11/10/22 17:04 Sodium 138 mmol/L (136-1 45) 11/10/22 17:04 Potassium 3.4 mmol/L (3.5-5 .1) L 11/10/22 17:04 Chloride 105 mmol/L (98-10 7) 11/10/22 17:04 Carbon Dioxide 20 mmol/L (22-29) L 11/10/22 17:04 Anion Gap 16.4 (5-19) 11/10/22 17:04 BUN 9 mg/dL (6-20) 11/10/22 17:04 Creatinine 0.7 mg/dL (0.5-0. 9) 11/10/22 17:04 GFR Calculation 100.4 mL/min (90- 130) 11/10/22 17:04 Glucose 81 mg/dL (65-115) 11/10/22 17:04 Calculated Osmolal ity 284 mOsm/kg (285- 295) L 11/10/22 17:04 Calcium 9.3 mg/dL (8.5-10 .5) 11/10/22 17:04 Total Bilirubin 0.4 mg/dL (0.15-1 .2) 11/10/22 17:04 AST 17 U/L (0-32) 11/10/22 17:04 ALT 17 U/L (0-33) 11/10/22 17:04 Alkaline Phosphata se 73 U/L (35-105) 11/10/22 17:04 Total Protein 8.1 g/dL (6.6-8.7 ) 11/10/22 17:04 Albumin 4.1 g/dL (3.5-5.2 ) 11/10/22 17:04 Globulin 4.0 g/dL (1.3-4.6 ) 11/10/22 17:04 HCG, Qual Negative (Negati ve) 11/10/22 17:45 Urine Color Yellow (Yellow) 11/10/22 17:45 Urine Appearance Hazy (CLEAR) A 11/10/22 17:45 Urine pH 5 (5-7) 11/10/22 17:45 Ur Specific Gravit y 1.025 (1.005-1.0 30) 11/10/22 17:45 Urine Protein Trace (Negative) 11/10/22 17:45 Urine Glucose (UA) Norm (Normal) 11/10/22 17:45 Urine Ketones 1+ (Negative) H 11/10/22 17:45 Urine Blood Neg (Negative) 11/10/22 17:45 Urine Nitrate Negative (Negati ve) 11/10/22 17:45 Urine Bilirubin 1+ (Negative) H 11/10/22 17:45 Urine Urobilinogen 1 mg/dL (Negative ) H 11/10/22 17:45 Ur Leukocyte Eugenia ase 2+ (Negative) H 11/10/22 17:45 Urine RBC 0-4 /hpf (0-2) H 11/10/22 17:45 Urine WBC 10-15 /hpf (0-5) H 11/10/22 17:45 Ur Squamous Epith Cells 5-10 /hpf (0-5) H 11/10/22 17:45 Amorphous Sediment 2+ /hpf 11/10/22 17:45 Urine Bacteria 3+ /hpf (NONE) H 11/10/22 17:45 Urine Mucus 3+ /hpf 11/10/22 17:45 Salicylates < 0.3 mg/dL (3-10 ) L 11/10/22 17:04 Urine Opiates Scre en Negative ng/mL (N egative) 11/10/22 17:45 Acetaminophen < 5.0 ug/mL (10-3 0) L 11/10/22 17:04 Ur Barbiturates Sc reen Negative ng/mL (N egative) 11/10/22 17:45 Ur Phencyclidine S crn Negative ng/mL (N egative) 11/10/22 17:45 Ur Amphetamines Sc reen Negative ng/mL (N egative) 11/10/22 17:45 U Benzodiazepines Scrn Negative ng/mL (N egative) 11/10/22 17:45 Urine Cocaine Scre en Negative ng/mL (N egative) 11/10/22 17:45 U Marijuana (THC) Screen Negative ng/mL (N egative) 11/10/22 17:45 Ethyl Alcohol < 10 mg/dL (0-10) 11/10/22 17:04 Vitals: Last Vital Signs Temp 97.9 F 11/12/22 22:00 Pulse 74 11/13/22 06:00 Resp 16 11/13/22 06:00 BP 113/72 11/13/22 06:00 Pulse Ox 94 11/13/22 06:00 O2 Del Method Room Air 11/12/22 14:00 Discharge Plan Discharge Patient Disposition: Home Condition: Stable Prescriptions: New bupropion HCl 150 mg Tablet Extended Release 24 Hr 150 mg PO DAILY 30 Days Qty: 30 1RF Continued albuterol sulfate [ProAir HFA] 90 mcg/actuation HFA aerosol inhaler 2 puff inhalation Q6H PRN (Reason: Shortness Of Breath Or Wheezing) omeprazole 20 mg capsule,delayed release(DR/EC) 20 mg PO BID Topamax 50 mg tablet 50 mg PO DAILY buspirone 15 mg tablet 15 mg PO BID 30 Days Qty: 60 1RF Rx Instructions: Take one tablet twice daily Discontinued desvenlafaxine succinate [Pristiq] 100 mg tablet extended release 24 hr 100 mg PO DAILY Discharge Orders: Discharge Order (Routine); Ordered 11/13/22 Ordered By: Carroll Eason Referrals: [facility] [Outside] - 11/16/22 10:30 am (Initial assessment for services) Discharge Diet: Usual diet Discharge Activity: Resume usual activity Patient Instructions: Opioid Safety Discharge Attestations NPU Time Spent in Discharge Care*: less than 30 min Specific Discharge Activities: Specific discharge activities: educating patient and documenting/other paperwork Coding Level of Care Code Acute Chg FW DC note Diagnoses Major depressive disorder, recurrent, moderate F33.1 Suicidal ideation R45.851 Hyperinsulinism E16.1 Anxiety F41.9 Chronic post-traumatic stress disorder (PTSD) F43.12 Morbid obesity with BMI of 50.0-59.9, adult E66.01; Z68.43 Obstructive sleep apnea of adult G47.33
[2022-11-13 15:55] VITALS: BP 113/72; PULSE 74; RESP 16; O2SAT 94
== END 2022-11-13 16:07 | disposition home or self-care (01) | DRG 881 ==
LOC: ER 17:12 → NP 18:28
PROVIDERS: Admitting Provider Psychiatry & Neurology Psychiatry; Emergency Provider Emergency Medicine; Visit Provider Psychiatry & Neurology Psychiatry
DX: F32.A Depression, unspecified (principal); R45.851 Suicidal ideations; Z59.00 Homelessness unspecified; Z91.138 Patient's unintentional underdosing of medication regimen for other reason; F41.9 Anxiety disorder, unspecified
CPT/HCPCS: 36415; 80053; 80306; 80307; 81001; 81025; 85025; 87086; 94640; 97150; 97165; 99238; 99285; J7613

== ENCOUNTER 2023-10-22 14:23 | Emergency (ER) | payer MEDICAID, SELFPAY ==
--- NOTE | 2023-10-22 14:26 | XRR_ITS ---
PROCEDURE INFORMATION: Exam: XR Right Foot Exam date and time: 10/22/2023 3:01 PM Age: 28 years old Clinical indication: Injury or trauma; Other: Stepped in a hole; Sprain or strain; Foot; Right TECHNIQUE: Imaging protocol: Radiologic exam of the right foot. Views: 3 or more views. COMPARISON: No relevant prior studies available. FINDINGS: Bones/joints: Tiny posterior calcaneal enthesophyte. No acute osseous findings. Soft tissues: Normal. XR/XR foot RT min 3V* [id number] IMPRESSION: No acute osseous findings.
[2023-10-22 15:19] VITALS: BP 122/61; PULSE 82; TEMP 36.7; O2SAT 97; BMI 62.4
--- NOTE | 2023-10-22 15:26 | W.ED.LOWEXIN ---
HPI - Extremity Injury (Lower) General: Chief Complaint: Extremity Injury, Lower Stated Complaint: R foot injury Time Seen by Provider: 10/22/23 14:52 Source: patient Mode of arrival: wheelchair Limitations: no limitations History of Present Illness: Patient is a 28-year-old female presents to ED today for evaluation of right ankle/foot pain/injury that she sustained 2 days ago after she was walking outside and accidentally twisted it by stepping in a hole. She states she has not been able to bear weight since the incident. Has been using an RADHA wrap/crutches. complaint: ankle injury and foot injury Onset (ago): day(s) Injury: Right: ankle and foot Place: home Severity: moderate Relieving factors: immobilization Exacerbating factors: weight bearing, movement and palpation Context: walking Associated symptoms: Reports inability to bear weight Other symptoms: none Treatments prior to arrival: bandage Review of Systems Musc: Reports: extremity pain (R foot) and joint pain (R ankle); Denies: neck pain, back pain, extremity swelling or joint swelling Neuro: Reports: difficulty walking; Denies: numbness in extremities, weakness in extremities or sensory changes PFSH ED PFSH: Medical History Hyperprolactinemia Polycystic ovarian syndrome History of diabetes mellitus States told had gone away. States had been treated with Metformin, but stopped in approximately 2018 GERD (gastroesophageal reflux disease) Chronic post-traumatic stress disorder (PTSD) Morbid obesity with BMI of 50.0-59.9, adult Obstructive sleep apnea of adult Major depression, recurrent, chronic Agoraphobia with panic attacks Anxiety Scoliosis History of prediabetes IBS (irritable bowel syndrome) Asthma Surgical History History of placement of ear tubes Hx of wisdom tooth extraction Family History Mother Diabetes Grandmother CAD (coronary artery disease) Paternal Stroke Paternal Family/Other Cancer Paternal side. Multiple types. Social History Smoking and tobacco/nicotine status: former use of tobacco/nicotine Quit status (tobacco/nicotine): has quit using Year quit tobacco: 10/2018 Former quit date comment: Smoked 1/2 ppd. Started age 20. Alcohol intake: never Substance/Drug Use: never Marital status: Do you think of yourself as: Straight/Heterosexual Physical Exam Const: COMMON NORMALS: no acute distress, patient oriented x3, no limitations and alert GENERAL APPEARANCE: cooperative NUTRITIONAL APPEARANCE: obese morbidly obese (BMI of over 62) Extremity: COMMON NORMALS: capillary refill normal and no clubbing, cyanosis or edema GENERAL: Yes normal exam except as noted RIGHT LOWER EXTREMITY: Yes foot & digits Right ankle: Yes inspection (normal gross inspection), Yes palpation (TTP lateral R ankle overlying lateral malleolus) and Yes neurovascular exam (normal) and Yes foot & digits (TTP lateral R foot; no bony deformities noted) Right foot and digits: Yes inspection (normal gross inspection) and Yes neurovascular exam (normal) Neuro: COMMON NORMALS: patient oriented x3, moves all extremities, no focal motor deficits and no sensory deficits noted SENSORIUM/ORIENTATION: Yes alert Course Vital Signs: Vital signs: Vital Signs Temperature 98.1 F 10/22/23 15:19 Pulse Rate 82 10/22/23 15:19 Blood Pressure 122/61 10/22/23 15:19 Pulse Oximetry 97 10/22/23 15:19 Oxygen Delivery Me thod Room Air 10/22/23 15:19 MDM - Extremity Injury (Lower) Medical Decision Making XR unremarkable. Patient has crutches/RADHA wrap she can continue using. Recommend ice, elevation, NSAIDS. Can follow up with PCP in 1-2 weeks if symptoms are not improving. Medical Records I reviewed the patient's medical records. Lab Data Radiology Impressions Foot X-Ray 10/22/23 14:26 IMPRESSION: No acute osseous findings. XR interpretation done by ED provider, pending radiology final review ED provider radiology interpretation(s): XR interpretation done by ED provider, pending radiology final review ED provider radiology interpretation(s): XRs of foot/ankle reviewed and showing no acute fractures Discharge Plan Discharge Patient Disposition: Home Clinical Impression: Sprain of ankle, right Qualifiers: Encounter type: initial encounter Involved ligament of ankle: unspecified ligament Qualified Code(s): S93.401A - Sprain of unspecified ligament of right ankle, initial encounter Condition: Stable Prescriptions: No Action albuterol sulfate [ProAir HFA] 90 mcg/actuation HFA aerosol inhaler 2 puff inhalation Q6H PRN (Reason: Shortness Of Breath Or Wheezing) omeprazole 20 mg capsule,delayed release(DR/EC) 20 mg PO BID Topamax 50 mg tablet 50 mg PO DAILY bupropion HCl 150 mg Tablet Extended Release 24 Hr 150 mg PO DAILY 30 Days Qty: 30 1RF buspirone 15 mg tablet 15 mg PO BID 30 Days Qty: 60 1RF Rx Instructions: Take one tablet twice daily Discharge Orders: Discharge ED (Routine); Ordered 10/22/23 Ordered By: Acacia Kumar Patient Instructions: Ankle Sprain (DC), RICE Therapy Coding Level of Care Code ED Director Of Spa And Guest Experience for Drew Puri
--- NOTE | 2023-10-22 15:35 | XRR_ITS ---
PROCEDURE INFORMATION: Exam: XR Right Ankle Exam date and time: 10/22/2023 4:20 PM Age: 28 years old Clinical indication: Pain; Ankle; Right; Additional info: Injury/pain TECHNIQUE: Imaging protocol: Radiologic exam of the right ankle. Views: 3 or more views. COMPARISON: CR XR foot RT min 3V* [id number] 10/22/2023 3:01 PM FINDINGS: Bones/joints: Symmetric ankle mortise given projection. No acute osseous findings. Soft tissues: Normal. XR/XR ankle RT min 3V* [id number] IMPRESSION: Negative exam.
[2023-10-22 16:57] VITALS: PULSE 94; RESP 18; O2SAT 99
== END 2023-10-22 16:59 | disposition home or self-care (01) ==
PROVIDERS: Emergency Provider Physician Assistant
DX: S93.401A Sprain of unspecified ligament of right ankle, initial encounter (principal); W17.2XXA Fall into hole, initial encounter
CPT/HCPCS: 73610; 73630; 99283

== ENCOUNTER 2024-11-29 16:09 | Emergency (ER) | payer MEDICAID, SELFPAY ==
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
[2024-11-29] VITALS (8 sets, daily range): BP systolic 103–126; BP diastolic 66–88; PULSE 90–111; RESP 18; TEMP 36.7; O2SAT 92–97; BMI 56.1
--- OUTSIDE RECORDS SUMMARY | 2024-11-29 16:15 | XMS_ITS | Encounter Summary ---
Author Organization [facility] Address [address] [place] [address] Care Team Providers Care Cut Off Saw Operator Pipe Blanks Name Role Phone Francisco J Neeta BUTLER Primary Care Provider [phone] Encounter Details Date Type Department Care Team (Latest Contact Info) Description 07/27/1999 Outpatient Historical [facility] [address], [place] [id number] Roberto Menchaca MD [address] [place] [phone] Acute tonsillitis (Primary Dx); Unspecified otitis media; Allergy, unspecified not elsewhere classified Social History Tobacco Use Types Packs/Day Years Used Date Smoking Tobacco: Never Assessed Comments Unknown Sex and Gender Information Value Date Recorded Sex Assigned at Not on file Legal Sex Female 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
--- OUTSIDE RECORDS SUMMARY | 2024-11-29 16:15 | XMS_ITS | Clinical Summary ---
Author Organization [facility] Address [address] [place] [address] Care Team Providers Care Roustabout Head Name Role Phone Marx, Neeta CARRIE Primary Care Provider [phone] Allergies Active Allergy Reactions Criticality Noted Date Comments Aspirin Nausea and Vomiting Low 03/31/2014 Grape Flavoring Rash Low 04/19/2020 Penicillins Hives High 03/31/2014 Medications busPIRone (BUSPAR) 5 mg tablet Take 10 mg by mouth 3 times daily. Active traZODone (DESYREL) 50 mg tablet Take 100 mg by mouth daily at bedtime. Active sertraline (ZOLOFT) 100 mg tablet Take 100 mg by mouth daily. Active fluticasone propionate (FLOVENT HFA) 110 mcg/actuation HFA Aerosol InhalerIndicati ons:Exacerbatio n of asthma, unspecified asthma severity, unspecified whether persistent Take 1 Puff by inhalation 2 times daily. 12 Gram 2 04/19/19 21 Active valACYclovir (Valtrex) 1 gram tabletIndicatio ns:History of cold sores,Recurrent cold sores Take 1 Tablet (1,000 mg) by mouth see administration instructions. Take 1 tablet twice a day for 2 days at the onset of cold sore symptoms then stop use. 30 Tablet 07/13/19 21 Active ProAir HFA 90 mcg/actuation inhalerIndicati ons:Exacerbatio n of asthma, unspecified asthma severity, unspecified whether persistent INHALE 2 PUFFS BY MOUTH EVERY 6 HOURS NEEDED FOR SHORTNESS OF BREATH 8.5 Gram 11 07/31/19 21 Active topiramate (Topamax) 50 mg tabletIndicatio ns:Intractable chronic migraine without aura and without status migrainosus Take 1 Tablet (50 mg) by mouth daily at bedtime. 30 Tablet 3 07/31/19 Active omeprazole (PriLOSEC) 20 mg Capsule, Delayed Release(E.C.)In dications:Gastr oesophageal reflux disease, unspecified whether esophagitis present TAKE 1 CAPSULE(20 MG) BY MOUTH DAILY 30 Capsule 11 08/10/19 Active fluconazole (Diflucan) 100 mg tablet Take 1 Tablet (100 mg) by mouth daily. 3 Tablet 09/09/19 Active nystatin (MYCOSTATIN) 100,000 unit/gram Cream Apply to affected area 2 times daily. 60 Gram 2 09/09/19 Active Active Problems Problem Noted Date Diagnosed Date Intractable chronic migraine without aura and without status migrainosus 08/08/2020 Morbid obesity with body mass index (BMI) of 40. 0 or higher 08/08/2020 Gastroesophageal reflux disease without esophagi tis 08/08/2020 Moderate persistent asthma without complication 08/08/2020 Obstructive sleep apnea syndrome 08/08/2020 Generalized anxiety disorder 08/08/2020 Dental impaction 01/20/2015 Left foot pain 03/25/2013 Immunizations Immunization Administration Dates Next Due (M-M-R II/PRIORIX)(12 MO UP) MEASLES, MUMPS AND RUBELLA VIRUS VACCINE, 0.5 ML IM/SUBCUT 07/09/2000 Dt Dtp Dtap Vaccine 07/09/2000 IPV/OPV 07/09/2000 Social History Tobacco Use Types Packs/Day Years Used Date Smoking Tobacco: Never Smokeless Tobacco: Never Alcohol Use Standard Drinks/Week Comments No 0 (1 standard drink = 0.6 oz pur e alcohol) Comments No Sex and Gender Information Value Date Recorded Sex Assigned at Not on file Legal Sex Female 4:59 AM STEAM CLEANER Gender Identity Not on file Sexual Orientation Not on file Last Filed Vital Signs Vital Sign Reading Time Taken Comments Blood Pressure 125/71 07/30/2020 2:44 PM CDT Pulse 131 07/30/2020 2:44 PM CDT Temperature 36.3 C (97.4 F) 07/30/2020 2:44 PM CDT Respiratory Rate 18 04/27/2015 12:52 PM STEAM CLEANER Oxygen Saturation 99% 07/30/2020 2:44 PM CDT Inhaled Oxygen Concentration - - Weight 155 kg (341 lb 12.8 oz) 07/30/2020 2:44 P M CDT Height 170.2 cm (5' 7 ) 07/30/2020 2:44 PM CDT Body Mass Index 53.53 07/30/2020 2:44 PM CDT Plan of Treatment Health Maintenance Due Date Last Done Comments DTAP/TDAP/TD VACCINES (2 - Tdap) 06/13/2014 07/10/19 HEPATITIS B VACCINES (1 of 3 - 19+ 3-dose series) 05/18 CERVICAL CANCER SCREENING 06/13/2016 HPV/Cotest (21-29) 06/13/2016 PAP SMEAR 06/13/2016 HPV VACCINES (1 - 3-dose SCDM series) 06/13/2022 INFLUENZA VACCINE (#1) 2024 [place] Advance Directives For more information, please contact: [phone] * Full Code (Latest Code Status on File) Date Activated Date Inactivated Comments 04/27/2015 8:59 AM 04/27/2015 3:16 PM Care Teams Roustabout Head Relationship Specialty Start Date End Date Neeta aMrx FNP [address] [place] [address] PCP - General Nurse Practitioner Family 06/29/20
--- OUTSIDE RECORDS SUMMARY | 2024-11-29 16:15 | XMS_ITS | Encounter Summary ---
Author Organization [facility] Address [address] [place] [address] Care Team Providers Care Photo Colorer Name Role Phone Francisco JJose ManuelNeeta CARRIE Primary Care Provider [phone] Encounter Details Date Type Department Care Team (Latest Contact Info) Description 06/07/2000 Outpatient Historical [address] [phone] Roberto Menchaca MD [address] [place] [phone] Unspecified viral infection, in conditions classified elsewhere and of unspecified site (Primary Dx) Social History Tobacco Use Types Packs/Day Years Used Date Smoking Tobacco: Never Assessed Comments Unknown Sex and Gender Information Value Date Recorded Sex Assigned at Not on file Legal Sex Female 4:59 AM SCREEN CLEANER Gender Identity Not on file Sexual Orientation Not on file documented as of this encounter Plan of Treatment Not on file documented as of this encounter Visit Diagnoses Diagnosis Unspecified viral infection, in conditions classified elsewhere and of unspecified site- Primary documented in this encounter Care Teams Photo Colorer Relationship Specialty Start Date End Date Francisco J CARRIE Santacruz [address] [place] [address] PCP - General Nurse Practitioner Family 06/29/20 documented as of this encounter
--- OUTSIDE RECORDS SUMMARY | 2024-11-29 16:15 | XMS_ITS | Encounter Summary ---
Author Organization [facility] Address [address] [place] [address] Care Team Providers Care Highway Administrative Engineer Name Role Phone Francisco J Neeta BUTLER Primary Care Provider [phone] Encounter Details Date Type Department Care Team (Latest Contact Info) Description 05/06/2001 Outpatient Historical [address] [phone] Roberto Menchaca MD [address] [place] [phone] ACUTE BRONCHITIS (Primary Dx); UNS ASTHMA WOSTATUS ASTHMATICUS Social History Tobacco Use Types Packs/Day Years Used Date Smoking Tobacco: Never Assessed Comments Unknown Sex and Gender Information Value Date Recorded Sex Assigned at Not on file Legal Sex Female 4:59 AM SERVICE NOW DEVELOPER Gender Identity Not on file Sexual Orientation Not on file documented as of this encounter Plan of Treatment Not on file documented as of this encounter Visit Diagnoses Diagnosis Acute bronchitis- Primary Unspecified asthma(493.90) Unspecified asthma documented in this encounter Care Teams Highway Administrative Engineer Relationship Specialty Start Date End Date Francisco J CARRIE Santacruz [address] [place] [address] PCP - General Nurse Practitioner Family 06/29/20 documented as of this encounter
--- OUTSIDE RECORDS SUMMARY | 2024-11-29 16:15 | XMS_ITS | Encounter Summary ---
Author Organization [facility] Address [address] [place] [address] Care Team Providers Care Cattle Tester Name Role Phone Neeta Marx Primary Care Provider [phone] Encounter Details Date Type Department Care Team (Latest Contact Info) Description 04/11/2000 Outpatient Historical [address] 16[place], [place] [phone] Roberto Menchaca MD [address] [place] [phone] Nonorganic enuresis (Primary Dx) Social History Tobacco Use Types Packs/Day Years Used Date Smoking Tobacco: Never Assessed Comments Unknown Sex and Gender Information Value Date Recorded Sex Assigned at Not on file Legal Sex Female 4:59 AM BLEACH RANGE OPERATOR Gender Identity Not on file Sexual Orientation Not on file documented as of this encounter Plan of Treatment Not on file documented as of this encounter Visit Diagnoses Diagnosis Nonorganic enuresis- Primary documented in this encounter Care Teams Cattle Tester Relationship Specialty Start Date End Date Francisco J CARRIE Santacruz [address] [place] [phone] PCP - General Nurse Practitioner Family 06/29/20 documented as of this encounter
--- OUTSIDE RECORDS SUMMARY | 2024-11-29 16:15 | XMS_ITS | Encounter Summary ---
Author Organization [facility] Address [address] [place] [address] Care Team Providers Care Sheep Clipper Name Role Phone Neeta Marx Primary Care Provider [phone] Encounter Details Date Type Department Care Team (Latest Contact Info) Description 06/11/2000 Outpatient Historical [address] [phone] Roberto Menchaca MD [address] [place] [phone] Stomatitis and mucositis (ulcerative) (Primary Dx) Social History Tobacco Use Types Packs/Day Years Used Date Smoking Tobacco: Never Assessed Comments Unknown Sex and Gender Information Value Date Recorded Sex Assigned at Not on file Legal Sex Female 4:59 AM EMERGENCY ROOM TECH Gender Identity Not on file Sexual Orientation Not on file documented as of this encounter Plan of Treatment Not on file documented as of this encounter Visit Diagnoses Diagnosis Stomatitis and mucositis (ulcerative)- Primary documented in this encounter Care Teams Sheep Clipper Relationship Specialty Start Date End Date Francisco J CARRIE Santacruz [address] [place] [address] PCP - General Nurse Practitioner Family 06/29/20 documented as of this encounter
--- OUTSIDE RECORDS SUMMARY | 2024-11-29 16:15 | XMS_ITS | Encounter Summary ---
Author Organization [facility] Address [address] [place] [address] Care Team Providers Care Business Technology Architect Name Role Phone Neeta Marx Primary Care Provider [phone] Encounter Details Date Type Department Care Team (Late st Contact Info) Description 06/21/2001 Outpatient Historical [facility] Ear, Nose and Throat [address] [place] [phone] Social History Tobacco Use Types Packs/Day Years Used Date Smoking Tobacco: Never Assessed Comments Unknown Sex and Gender Information Value Date Recorded Sex Assigned at Not on file Legal Sex Female 4:59 AM INBOUND CUSTOMER SERVICE REPRESENTATIVE Gender Identity Not on file Sexual Orientation Not on file documented as of this encounter Plan of Treatment Not on file documented as of this encounter Visit Diagnoses Not on filedocumented in this encounter Care Teams Business Technology Architect Relationship Specialty Start Date End Date Neeta Marx FNP [address] [place] [address] PCP - General Nurse Practitioner Family 06/29/20 documented as of this encounter
--- OUTSIDE RECORDS SUMMARY | 2024-11-29 16:15 | XMS_ITS | Encounter Summary ---
Author Organization [facility] Address [address] [place] [address] Care Team Providers Care Sales Incentive Analyst Name Role Phone Francisco J Neeta BUTLER Primary Care Provider [phone] Encounter Details Date Type Department Care Team (Late st Contact Info) Description 01/20/2015 Ancillary Orders [facility] Oral and Maxillo Surgery[address] [place] [address] Danilo Goel, Mark Almaguer, HÉCTOR NO ADDRESS ON FILE Disturbance, tooth, eruption (Primary Dx) Social History Tobacco Use Types Packs/Day Years Used Date Smoking Tobacco: Never Smokeless Tobacco: Never Alcohol Use Standard Drinks/Week Comments No 0 (1 standard drink = 0.6 oz pur e alcohol) Comments No Sex and Gender Information Value Date Recorded Sex Assigned at Not on file Legal Sex Female 4:59 AM TRADEMARK PARALEGAL Gender Identity Not on file Sexual Orientation Not on file documented as of this encounter Plan of Treatment Not on file documented as of this encounter Results * XR PANOREX (01/20/2015 2:30 PM TRADEMARK PARALEGAL) Anatomical Region Laterality Modality Head Computed Radiogr aphy Narrative 02/14/2015 7:31 PM TRADEMARK PARALEGAL Dental impaction Mark Carrasco Jr., DMD DIAGNOSTIC IMAGING ORDERABLES Final Result documented in this encounter Visit Diagnoses Diagnosis Disturbance, tooth, eruption- Primary Disturbances in tooth eruption documented in this encounter Care Teams Sales Incentive Analyst Relationship Specialty Start Date End Date Francisco J CARRIE Santacruz [address] [place] [address] PCP - General Nurse Practitioner Family 06/29/20 documented as of this encounter
--- OUTSIDE RECORDS SUMMARY | 2024-11-29 16:15 | XMS_ITS | Encounter Summary ---
Author Organization [facility] Address [address] [place] [address] Care Team Providers Care Thread Dresser Name Role Phone Neeta Marx Primary Care Provider [phone] Encounter Details Date Type Department Care Team (Latest Contact Info) Description 06/21/2001 Outpatient Historical [facility] Ear, Nose and Throat [address] [place] [address] Vick Cool MD NO ADDRESS ON FILE Routine medical exam (Primary Dx) Social History Tobacco Use Types Packs/Day Years Used Date Smoking Tobacco: Never Assessed Comments Unknown Sex and Gender Information Value Date Recorded Sex Assigned at Not on file Legal Sex Female 4:59 AM REFLECTOR DRILLER AND DEBURRER Gender Identity Not on file Sexual Orientation Not on file documented as of this encounter Plan of Treatment Not on file documented as of this encounter Visit Diagnoses Diagnosis Routine medical exam- Primary Routine general medical examination at a health care facility documented in this encounter Care Teams Thread Dresser Relationship Specialty Start Date End Date Neeta Marx FNP [address] [place] [address] PCP - General Nurse Practitioner Family 06/29/20 documented as of this encounter
--- OUTSIDE RECORDS SUMMARY | 2024-11-29 16:15 | XMS_ITS | Encounter Summary ---
Author Organization [facility] Address [address] [place] [address] Care Team Providers Care Driver Sales Name Role Phone Neeta Marx Primary Care Provider [phone] Encounter Details Date Type Department Care Team (Latest Contact Info) Description 05/20/1999 Outpatient Historical [address] [phone] Wendy Pearce MD [address] [place] [address] Nonorganic enuresis (Primary Dx); Urinary tract infection, site not specified Social History Tobacco Use Types Packs/Day Years Used Date Smoking Tobacco: Never Assessed Comments Unknown Sex and Gender Information Value Date Recorded Sex Assigned at Not on file Legal Sex Female 4:59 AM HEALTH PROMOTION OFFICER Gender Identity Not on file Sexual Orientation Not on file documented as of this encounter Plan of Treatment Not on file documented as of this encounter Visit Diagnoses Diagnosis Nonorganic enuresis- Primary Urinary tract infection, site not specified documented in this encounter Care Teams Driver Sales Relationship Specialty Start Date End Date Francisco J CARRIE Santacruz [address] [place] [address] PCP - General Nurse Practitioner Family 06/29/20 documented as of this encounter
--- OUTSIDE RECORDS SUMMARY | 2024-11-29 16:15 | XMS_ITS | Encounter Summary ---
Author Organization [facility] Address [address] [place] [address] Care Team Providers Care Relationship Advisor Name Role Phone Neeta Marx Primary Care Provider [phone] Encounter Details Date Type Department Care Team (Latest Contact Info) Description 06/17/2001 Outpatient Historical [address] [phone] Wendy Pearce MD [address] [place] [address] STOMATITIS (Primary Dx) Social History Tobacco Use Types Packs/Day Years Used Date Smoking Tobacco: Never Assessed Comments Unknown Sex and Gender Information Value Date Recorded Sex Assigned at Not on file Legal Sex Female 4:59 AM TERRAZZO SUPERVISOR Gender Identity Not on file Sexual Orientation Not on file documented as of this encounter Plan of Treatment Not on file documented as of this encounter Visit Diagnoses Diagnosis Stomatitis and mucositis (ulcerative)- Primary documented in this encounter Care Teams Relationship Advisor Relationship Specialty Start Date End Date Neeta Marx FNP [address] [place] [address] PCP - General Nurse Practitioner Family 06/29/20 documented as of this encounter
--- OUTSIDE RECORDS SUMMARY | 2024-11-29 16:15 | XMS_ITS | Encounter Summary ---
Author Organization [facility] Address [address] [place] [address] Care Team Providers Care Banking Specialist Name Role Phone Neeta Marx Primary Care Provider [phone] Encounter Details Date Type Department Care Team (Late st Contact Info) Description 03/20/2007 Outpatient Historical [facility] Ear, Nose and Throat [address] [place] [phone] Abram Vieira MD [address] [place] [address] Social History Tobacco Use Types Packs/Day Years Used Date Smoking Tobacco: Never Assessed Comments Unknown Sex and Gender Information Value Date Recorded Sex Assigned at Not on file Legal Sex Female 4:59 AM CUSTOMS AND BORDER PROTECTION OFFICER Gender Identity Not on file Sexual Orientation Not on file documented as of this encounter Plan of Treatment Not on file documented as of this encounter Visit Diagnoses Not on filedocumented in this encounter Care Teams Banking Specialist Relationship Specialty Start Date End Date Neeta Marx FNP [address] [place] [address] PCP - General Nurse Practitioner Family 06/29/20 documented as of this encounter
--- OUTSIDE RECORDS SUMMARY | 2024-11-29 16:15 | XMS_ITS | Encounter Summary ---
Author Organization [facility] Address [address] [place] [address] Care Team Providers Care Speech And Language Assistant Name Role Phone MarxNeeta CARRIE Primary Care Provider [phone] Encounter Details Date Type Department Care Team (Late st Contact Info) Description 06/29/2020 [facility] [address] [place] [address] Neeta Marx FNP [address] [place] [phone] Injury of left hand, initial encounter Social History Tobacco Use Types Packs/Day Years Used Date Smoking Tobacco: Never Smokeless Tobacco: Never Alcohol Use Standard Drinks/Week Comments No 0 (1 standard drink = 0.6 oz pur e alcohol) Comments No Sex and Gender Information Value Date Recorded Sex Assigned at Not on file Legal Sex Female 4:59 AM BOBCAT OPERATOR Gender Identity Not on file Sexual Orientation Not on file COVID-19 Exposure Response Date Recorded In the last month, have you been in contact with someone who was confirmed or suspected to have Coronavirus / COVID-19? No / Unsure 06/29/2020 1:03 PM CDT documented as of this encounter Plan of Treatment Not on file documented as of this encounter Results * XR WRIST 3+ VW LEFT (06/29/2020 1:31 PM CDT) Anatomical Region Laterality Modality Wrist / Hand Computed Radiogr aphy 06/29/2020 1:31 PM CDT Impressions 06/30/2020 9:45 AM CDT IMPRESSION: Please see below. Exam: XR WRIST 3+ VW LEFT Date/Time of Exam: 06/29/2020 1:31 PM Reason For Exam: See Diagnosis. Diagnosis: Injury of left hand, initial encounter. Comparison: None. Findings: Three views of the wrist demonstrate no acute fracture or dislocation. Ulna minus variance is present. No significant joint space loss or productive change is identified. Impression: 1. Negative for acute osseous abnormality. 2. Ulna minus variance. [id number] Narrative Procedure Note Andrzej Alegre MD - 06/30/2020 IMPRESSION: Please see below. Exam: XR WRIST 3+ VW LEFT Date/Time of Exam: 06/29/2020 1:31 PM Reason For Exam: See Diagnosis. Diagnosis: Injury of left hand, initial encounter. Comparison: None. Findings: Three views of the wrist demonstrate no acute fracture or dislocation. Ulna minus variance is present. No significant joint space loss or productive change is identified. Impression: 1. Negative for acute osseous abnormality. 2. Ulna minus variance. [id number] [facility] DIAGNOSTIC IMAGING ORDERABLES Fi nal Result documented in this encounter Visit Diagnoses Diagnosis Injury of left hand, initial encounter Injury of left hand, initial encounter documented in this encounter Care Teams Speech And Language Assistant Relationship Specialty Start Date End Date Neeta Marx FNP [address] [place] [address] PCP - General Nurse Practitioner Family 06/29/20 documented as of this encounter
--- OUTSIDE RECORDS SUMMARY | 2024-11-29 16:15 | XMS_ITS | Encounter Summary ---
Author Organization [facility] Address [address] [place] [address] Care Team Providers Care Screw Machine Tender Name Role Phone Neeta Marx Primary Care Provider [phone] Encounter Details Date Type Department Care Team (Latest Contact Info) Description 09/12/2001 Outpatient Historical [address] [phone] Roberto Menchaca MD [address] [place] [phone] INFEC OTITIS EXTERNA NOS (Primary Dx); ACUTE PHARYNGITIS Social History Tobacco Use Types Packs/Day Years Used Date Smoking Tobacco: Never Assessed Comments Unknown Sex and Gender Information Value Date Recorded Sex Assigned at Not on file Legal Sex Female 4:59 AM THROUGH FREIGHT ENGINEER Gender Identity Not on file Sexual Orientation Not on file documented as of this encounter Plan of Treatment Not on file documented as of this encounter Visit Diagnoses Diagnosis Infective otitis externa, unspecified- Primary Acute pharyngitis documented in this encounter Care Teams Screw Machine Tender Relationship Specialty Start Date End Date Marx CARRIE Santacruz [address] [place] [address] PCP - General Nurse Practitioner Family 06/29/20 documented as of this encounter
--- OUTSIDE RECORDS SUMMARY | 2024-11-29 16:15 | XMS_ITS | Encounter Summary ---
Author Organization [facility] Address [address] [place] [address] Care Team Providers Care Vine Fruit Farming Supervisor Name Role Phone Neeta Marx Primary Care Provider [phone] Encounter Details Date Type Department Care Team (Late st Contact Info) Description 07/09/2000 Outpatient Historical [facility] Medicine [address] [address] Wendy Pearce MD [address] [place] [address] Social History Tobacco Use Types Packs/Day Years Used Date Smoking Tobacco: Never Assessed Comments Unknown Sex and Gender Information Value Date Recorded Sex Assigned at Not on file Legal Sex Female 4:59 AM MUSICAL INSTRUMENT SUPERVISOR Gender Identity Not on file Sexual Orientation Not on file documented as of this encounter Plan of Treatment Not on file documented as of this encounter Visit Diagnoses Not on filedocumented in this encounter Care Teams Vine Fruit Farming Supervisor Relationship Specialty Start Date End Date Neeta Marx FNP [address] [place] [address] PCP - General Nurse Practitioner Family 06/29/20 documented as of this encounter
--- OUTSIDE RECORDS SUMMARY | 2024-11-29 16:15 | XMS_ITS | Encounter Summary ---
Author Organization [facility] Address [address] [place] [address] Care Team Providers Care Furniture Removalist Name Role Phone Neeta Marx Primary Care Provider [phone] Encounter Details Date Type Department Care Team (Latest Contact Info) Description 11/04/1999 Outpatient Historical [address] [phone] Wendy Pearce MD [address] [place] [id number] Unspecified hearing loss (Primary Dx); Other speech disturbance Social History Tobacco Use Types Packs/Day Years Used Date Smoking Tobacco: Never Assessed Comments Unknown Sex and Gender Information Value Date Recorded Sex Assigned at Not on file Legal Sex Female 4:59 AM CAP SIZER Gender Identity Not on file Sexual Orientation Not on file documented as of this encounter Plan of Treatment Not on file documented as of this encounter Visit Diagnoses Diagnosis Unspecified hearing loss- Primary Other speech disturbance documented in this encounter Care Teams Furniture Removalist Relationship Specialty Start Date End Date Francisco J CARRIE Santacruz [address] [place] [address] PCP - General Nurse Practitioner Family 06/29/20 documented as of this encounter
--- OUTSIDE RECORDS SUMMARY | 2024-11-29 16:15 | XMS_ITS | Encounter Summary ---
Author Organization [facility] Address [address] [place] [address] Care Team Providers Care Semiconductor Lab Technician Name Role Phone Francisco J Neeta BUTLER Primary Care Provider [phone] Encounter Details Date Type Department Care Team (Latest Contact Info) Description 04/04/2000 Outpatient Historical [address] [phone] Mireya Arriaza MD [address] [place] [address], [id number] Nasal/sinus dis NEC (Primary Dx); Acute upper respiratory infections of unspecified site Social History Tobacco Use Types Packs/Day Years Used Date Smoking Tobacco: Never Assessed Comments Unknown Sex and Gender Information Value Date Recorded Sex Assigned at Not on file 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
--- OUTSIDE RECORDS SUMMARY | 2024-11-29 16:15 | XMS_ITS | Encounter Summary ---
Author Organization [facility] Address [address] [place] [address] Care Team Providers Care Clinical Account Liaison Name Role Phone Neeta Marx Primary Care Provider [phone] Encounter Details Date Type Department Care Team (Late st Contact Info) Description 03/06/2007 Outpatient Historical [facility], Nose and Throat [address] 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
--- OUTSIDE RECORDS SUMMARY | 2024-11-29 16:15 | XMS_ITS | Encounter Summary ---
Author Organization [facility] Address [address] [place] [address] Care Team Providers Care Manager Of Corporate Name Role Phone Neeta Marx Primary Care Provider [phone] Encounter Details Date Type Department Care Team (Late st Contact Info) Description 03/13/2007 Outpatient Historical [facility] Ear, Nose and Throat 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
[2024-11-29 17:01] LABS: Glucose Urine UA Negative (Normal); Nitrate Urine Negative (Negative); Specific Gravity, Urine 1.007 (1.005-1.030)
[2024-11-29] MEDS: ondansetron 2 mg/ML SDV 2 mL 4 MG IVP (18:48)
[2024-11-29 18:49] LABS: Hematocrit 45.6 % (36-47); Hemoglobin 14.50 g/dL (11.27-16.99); Mean Corpuscular HGB Conc 31.8 g/dL (30-55); Mean Corpuscular Hemoglobin 26.6 pg (27-33); Mean Corpuscular Volume 83.7 fl (85-98); Nucleated Red Blood Cells % 0 %; Platelet Count 254 10^3/cmm (157-399); Red Blood Count 5.45 10^6/uL (3.85-5.65); White Blood Count 6.74 10^3/uL (3.29-11.43)
[2024-11-29] MEDS: lidocaine 2% viscous 15 ML, aluminum-mag hydrox-simethicon 30 ML, sucralfate oral liq 1 GM PO (19:33)
[2024-11-29] MEDS: morphine 4 mg/mL SDV 1 mL IVP (19:34)
[2024-11-29 19:44] LABS: Alanine Aminotransferase 37 U/L (0-33); Albumin Level 3.8 g/dL (3.5-5.2); Alkaline Phosphatase 78 U/L (35-105); Anion Gap 17.7 (5-19); Aspartate Amino Transferase 33 U/L (0-32); Blood Urea Nitrogen 7 mg/dL (6-20); Calcium 8.7 mg/dL (8.5-10.5); Carbon Dioxide 23 mmol/L (22-29); Chloride 100 mmol/L (98-107); Creatinine Clr Calc Pharmacy 143.7381; Globulin 3.7 g/dL (1.3-4.6); Glucose 96 mg/dL (65-115); Lipase 11 U/L (13-60); Osmolality Calculated 282 mOsm/kg (285-295); Potassium 3.7 mmol/L (3.5-5.1); Sodium 137 mmol/L (136-145); Total Protein 7.5 g/dL (6.6-8.7)
[2024-11-29 19:46] LABS: HCG, Serum Qual Negative (Negative)
--- NOTE | 2024-11-29 20:26 | W.ED.NAVMDI ---
HPI - Nausea/Vomiting/Diarrhea General: Chief complaint: Nausea/Vomiting/Diarrhea Stated complaint: Can't eat Acid reflux N/V/D Time Seen by Provider: 11/29/24 18:32 History of Present Illness: Patient is a 29-year-old female presenting with acute onset of diarrhea since last night. She reports inability to keep food down and can only tolerate very small, light meals. She has also experienced acid reflux for the past 48 hours. Patient denies any previous episodes of similar symptoms. She reports possible exposure to a viral illness, stating she was at a friend's house where one of the friend's clients was vomiting. Subsequently, her friend became ill, followed by the patient. She believes she may have had a fever yesterday or the day before, but denies fever today. Patient reports abdominal pain, with tenderness noted in the upper abdomen. She denies hematochezia. Patient reports she recently had what she believes was an ovarian cyst that has resolved. She is not currently menstruating but states her period is expected soon. No history of abdominal surgeries. Patient denies possibility of . Related Data Home Medications ?Medication ?Instructions ?Recorded ?Confirmed albuterol sulfate 90 mcg/actuation 2 puff inhalation Q6H PRN 04/26/20 11/10/22 aerosol inhaler (ProAir HFA) Shortness Of Breath Or Wheezing omeprazole 20 mg capsule,delayed 20 mg PO BID 11/10/22 11/10/22 release topiramate 50 mg tablet (Topamax) 50 mg PO DAILY 11/10/22 11/10/22 Previous Rx's ?Medication ?Instructions ?Recorded bupropion HCl 150 mg 24 hr tablet, 150 mg PO DAILY 30 days #30 tabs 11/13/22 extended release buspirone 15 mg tablet 15 mg PO BID 30 days #60 tabs 11/13/22 ondansetron 4 mg disintegrating 4 mg PO Q6H PRN nausea and 11/29/24 tablet vomiting #14 tabs Allergies Allergy/AdvReac Type Severity Reaction Status Date / Time aspirin Allergy feels like Verified 11/29/24 16:28 stomach is going to explode Penicillins Allergy gets hives Verified 11/29/24 16:28 PFS ED PFSH: Medical History Hyperprolactinemia Polycystic ovarian syndrome History of diabetes mellitus States told had gone away. States had been treated with Metformin, but stopped in approximately 2019 GERD (gastroesophageal reflux disease) Chronic post-traumatic stress disorder (PTSD) Morbid obesity with BMI of 50.0-59.9, adult Obstructive sleep apnea of adult Major depression, recurrent, chronic Agoraphobia with panic attacks Anxiety Scoliosis History of prediabetes IBS (irritable bowel syndrome) Asthma Surgical History History of placement of ear tubes Hx of wisdom tooth extraction Family History Mother Diabetes Grandmother CAD (coronary artery disease) Paternal Stroke Paternal Family/Other Cancer Paternal side. Multiple types. Social History Smoking and tobacco/nicotine status: former use of tobacco/nicotine Quit status (tobacco/nicotine): has quit using Year quit tobacco: 10/2018 Former quit date comment: Smoked 1/2 ppd. Started age 20. Alcohol intake: never Substance/Drug Use: never Marital status: Do you think of yourself as: Straight/Heterosexual Physical Exam Const: COMMON NORMALS: no acute distress GENERAL APPEARANCE: cooperative; not ill appearing and not frail appearing HENMT: COMMON NORMALS: normocephalic, atraumatic and Normal external nose present HEAD & SCALP: normocephalic and atraumatic FACE & SINUS: normal facial exam and face symmetric NOSE: Normal external nose present Eye: COMMON NORMALS: Equal, round and reactive pupils present and EOMs intact bilaterally PUPIL: Yes Equal, round and reactive pupils present Neck/C-Spine: GENERAL: Yes trachea midline Chest: CHEST: Yes Symmetrical chest wall rise Resp: COMMON NORMALS: normal respiratory effort, No retractions, No use of accessory muscles and clear to auscultation bilaterally AUSCULTATION: clear to auscultation bilaterally Cardio: COMMON NORMALS: regular rate and regular rhythm RATE: regular rate RHYTHM: regular rhythm GI: COMMON NORMALS: Normal to inspection, nondistended, normoactive bowel sounds present and Soft to palpation PALPATION: Yes Soft to palpation and Yes Tenderness to palpation present (GI) (Epigastric) Extremity: COMMON NORMALS: no pedal edema Neuro: RAMY COMA SCALE: document GCS findings Ramy coma scale eye opening: Spontaneous [place] coma scale verbal response: Orientated [place] coma scale motor response: Obey commands [place] coma scale total score: 15 SENSORY EXAM: Yes extremities (intact) Psych: COMMON NORMALS: speech normal SPEECH: Yes normal speech Skin: COMMON NORMALS: no rashes or lesions noted GENERAL SKIN EXAM: no rashes or lesions noted Course Vital Signs: Vital signs: Vital Signs Temperature 98.0 F 11/29/24 16:22 Pulse Rate 92 11/29/24 21:07 Respiratory Rate 18 11/29/24 19:34 Blood Pressure 123/88 11/29/24 21:07 Pulse Oximetry 95 11/29/24 21:07 Oxygen Delivery Me thod Room Air 11/29/24 20:30 MDM - Nausea/Vomiting/Diarrhea Medical Decision Making Vitals are stable. She is less tachycardic now after fluid bolus. CBC and BMP are normal. She is not . Urinalysis is negative save 2+ blood on the dip although has only 0-2 reds on micro. Her CRP is elevated, likely representing gastroenteritis given her symptoms. Symptomatic treatment. Outpatient follow-up. Return for worsening symptoms. Lab Data 11/29/24 18:41 11/29/24 19:17 Laboratory Results WBC 6.74 10^3/uL (3.29-11.43) 11/29/24 18:41 RBC 5.45 10^6/uL (3.85-5.65) 11/29/24 18:41 Hgb 14.50 g/dL (11.27-16.99) 11/29/24 18:41 Hct 45.6 % (36-47) 11/29/24 18:41 MCV 83.7 fl (85-98) L 11/29/24 18:41 MCH 26.6 pg (27-33) L 11/29/24 18:41 MCHC 31.8 g/dL (30-55) 11/29/24 18:41 RDW 14.4 % (12.1-15.1) 11/29/24 18:41 Plt Count 254 10^3/cmm (157-399) 11/29/24 18:41 MPV 10.1 fL (7.4-10.4) 11/29/24 18:41 Neut % (Auto) 71.6 % 11/29/24 18:41 Lymph % (Auto) 18.2 % 11/29/24 18:41 [place] % (Auto) 7.4 % 11/29/24 18:41 Eos % (Auto) 1.9 % 11/29/24 18:41 Baso % (Auto) 0.6 % 11/29/24 18:41 Neut # (Auto) 4.82 10^3/uL (1.8-7.7) 11/29/24 18:41 Lymph # (Auto) 1.2 10^3/uL (0.8-4.8) 11/29/24 18:41 [place] # (Auto) 0.5 10^3/uL (0.2-0.9) 11/29/24 18:41 Eos # (Auto) 0.1 10^3/uL (0.0-0.8) 11/29/24 18:41 Baso # (Auto) 0.0 10^3/uL (0.0-0.1) 11/29/24 18:41 Nucleated RBC % (auto) 0 % 11/29/24 18:41 Nucleated RBCs # 0.0 /100WBC 11/29/24 18:41 Sodium 137 mmol/L (136-145) 11/29/24 19:17 Potassium 3.7 mmol/L (3.5-5.1) 11/29/24 19:17 Chloride 100 mmol/L (98-107) 11/29/24 19:17 Carbon Dioxide 23 mmol/L (22-29) 11/29/24 19:17 Anion Gap 17.7 (5-19) 11/29/24 19:17 BUN 7 mg/dL (6-20) 11/29/24 19:17 Creatinine 0.9 mg/dL (0.5-0.9) 11/29/24 19:17 GFR Calculation 74.0 mL/min (90-130) L 11/29/24 19:17 Glucose 96 mg/dL (65-115) 11/29/24 19:17 Calculated Osmolality 282 mOsm/kg (285-295) L 11/29/24 19:17 Calcium 8.7 mg/dL (8.5-10.5) 11/29/24 19:17 Total Bilirubin 0.6 mg/dL (0.15-1.2) 11/29/24 19:17 AST 33 U/L (0-32) H 11/29/24 19:17 ALT 37 U/L (0-33) H 11/29/24 19:17 Alkaline Phosphatase 78 U/L (35-105) 11/29/24 19:17 C-Reactive Protein 77.5 mg/L (0.0-4.9) H 11/29/24 19:17 Total Protein 7.5 g/dL (6.6-8.7) 11/29/24 19:17 Albumin 3.8 g/dL (3.5-5.2) 11/29/24 19:17 Globulin 3.7 g/dL (1.3-4.6) 11/29/24 19:17 Lipase 11 U/L (13-60) L 11/29/24 19:17 HCG, Qual Negative (Negative) 11/29/24 19:17 Urine Color Yellow (Yellow) 11/29/24 16:32 Urine Appearance Clear (CLEAR) 11/29/24 16:32 Urine pH 6.0 (5-7) 11/29/24 16:32 Ur Specific [place] 1.007 (1.005-1.030) 11/29/24 16:32 Urine Protein Negative (Negative) 11/29/24 16:32 Urine Glucose (UA) Negative (Normal) 11/29/24 16:32 Urine Ketones Negative (Negative) 11/29/24 16:32 Urine Blood 2+ (Negative) A 11/29/24 16:32 Urine Nitrate Negative (Negative) 11/29/24 16:32 Urine Bilirubin Negative (Negative) 11/29/24 16:32 Urine Urobilinogen 1.0 mg/dL (Negative) 11/29/24 16:32 Ur Leukocyte Esterase Negative (Negative) 11/29/24 16:32 Urine RBC 0-2 /hpf (0-2) 11/29/24 16:32 Urine WBC 0-5 /hpf (0-5) 11/29/24 16:32 Ur Squamous Epith Cells 0-5 /hpf (0-5) 11/29/24 16:32 Amorphous Sediment Not Reportable 11/29/24 16:32 Urine Bacteria None seen /hpf (NONE) 11/29/24 16:32 Hyaline Casts 0.40 /lpf 11/29/24 16:32 No radiology studies performed this visit Discharge Plan Discharge Patient Disposition: Home Clinical Impression: Gastroenteritis Condition: Stable Prescriptions: New ondansetron 4 mg tablet,disintegrating 4 mg PO Q6H PRN (Reason: nausea and vomiting) Qty: 14 0RF No Action albuterol sulfate [ProAir HFA] 90 mcg/actuation HFA aerosol inhaler 2 puff inhalation Q6H PRN (Reason: Shortness Of Breath Or Wheezing) omeprazole 20 mg capsule,delayed release(DR/EC) 20 mg PO BID Topamax 50 mg tablet 50 mg PO DAILY bupropion HCl 150 mg Tablet Extended Release 24 Hr 150 mg PO DAILY 30 Days Qty: 30 1RF buspirone 15 mg tablet 15 mg PO BID 30 Days Qty: 60 1RF Rx Instructions: Take one tablet twice daily Discharge Orders: Discharge ED (Routine); Ordered 11/29/24 Ordered By: Juan Francisco Medina Patient Instructions: Gastroenteritis (ED), Opioid Safety, Pain Management, Patient Portal & Henri Instructions Activity Restrictions/Additional Instructions: Follow a liquid diet for the next 24 hours. Use your nausea medication scheduled every 4 hours while awake for the first 24 hours, then use it as needed following that. If no vomiting for 24 hours, you may advance your diet as tolerated. Call your doctor Sunday for a follow-up appointment. Return for worsening symptoms despite treatment. Print Language: Belarusian Coding Level of Care Code ED Marketing Analytics Lead for Drew Puri
== END 2024-11-29 21:09 | disposition home or self-care (01) ==
PROVIDERS: Physician Assistant; Emergency Provider Emergency Medicine
DX: K52.9 Noninfective gastroenteritis and colitis, unspecified (principal); Z87.891 Personal history of nicotine dependence; E11.9 Type 2 diabetes mellitus without complications
CPT/HCPCS: 36415; 80053; 81001; 83690; 84703; 85025; 86140; 96361; 96374; 96375; 99284; J1885; J2270; J2405; J7030; J9999